=== PATIENT | male | born 1945 | race Caucasian/White ===

== ENCOUNTER 2020-02-26 10:11 | Inpatient (IN) ==
--- OUTSIDE RECORDS SUMMARY | 2020-02-26 10:13 | External Medical Summary | Continuity of Care Document ---
:1945 Author Name Jeff Morales Address Unavailable Unavailable , Care Team Providers Name Role Phone Lesly Mendieta M.D. Unavailable [email or web address] Unavailable Unavailable Unavailable Unavailable Unavailable Assessments Assessed Problems:Cholelithiasis with cholecystitisStatus post laparoscopic cholecystectomy Problems Status post laparoscopic cholecystectomy (V45.89) (Z90.49) Cholelithiasis with cholecystitis (574.10) (K80.10) Allergies and Adverse Reactions No Known Drug Allergies (Allergy) Mold (Allergy) Medications Aspirin 81 MG Oral Tablet Chewable; CHEW AND SWALLOW 1 TABLE T DAILY. Start: 29-Dec-2015 Refills: 0 Levothyroxine Sodium 100 MCG Oral Tablet; TAKE 1 TABLET MAICO Y. Start: 29-Dec-2015 Refills: 0 Procedures History of Cholecystectomy Laparoscopic Status: Completed 21-Dec-2015 0:00 History of Sinus Surgery Status: Complet ed Immunizations Immunizations not documented Family History Brother Family history of diabetes mellitus (V18.0) (Z83.3) Status: Active Family history of prostate cancer (V16.42) (Z80.42) Status: Active Family history of hypertension (V17.49) (Z82.49) Status: Act suman Mother Family history of hypertension (V17.49) (Z82.49) Status: Act suman Family history of cardiac disorder (V17.49) (Z82.49) Status: Active Father Family history of cardiac disorder (V17.49) (Z82.49) Status: Active Social History - Smoking Status Never smoked tobacco Plan of Treatment Planned Observations Planned Goals not documented Results No Known Results Results not documented Encounters Appointment; Carlos Mendieta M.D. 02-Jan-2016 9:40 Encounter Diagnosis: Problem not documented
[2020-02-26] MEDS ORDERED: ONDANSETRON INJ 2 MG/ML 2 ML VIAL IV STA (10:27)
[2020-02-26] MEDS ORDERED: SODIUM CHLORIDE 0.9% 1000ML 1,000 ML IV SCH (10:30)
[2020-02-26] MEDS: fentaNYL citrate 100 MCG/2 ML VIAL IV PRN ×2 (10:37→11:28)
[2020-02-26] MEDS ORDERED: IOVERSOL 100ml IV ONE (10:40)
[2020-02-26 10:44] LABS: Basophils # (auto) 0.01 K/uL (0-0.2); Basophils % (auto) 0.2 %; Eosinophils # (auto) 0.27 K/uL (0-0.5); Eosinophils % (auto) 4.1 %; Hematocrit (blood only) 50.3 % (42-52); Hemoglobin 17.4 g/dL (14.0-18.0); Immature Granulocytes # (auto) 0.02 K/uL (0.00-0.02); Immature Granulocytes % (auto) 0.3 %; Lymphocytes # (auto) 1.74 K/uL (1.2-3.4); Lymphocytes % (auto) 26.4 %; Mean Corpuscular Hemoglobin 29.5 pg (25-34); Mean Corpuscular Hgb Conc 34.6 g/dL (32-36); Mean Corpuscular Volume 85.3 fL (80-100); Monocytes # (auto) 0.58 K/uL (0.11-0.59); Monocytes % (auto) 8.8 %; Neutrophils # (auto) 3.97 K/uL (1.4-6.5); Neutrophils % (auto) 60.2 %; Platelet Count 175 K/uL (130-400); RDW Coefficient of Variation 13.6 % (11.5-14.5); RDW Standard Deviation 42.6 fL (36.4-46.3); White Blood Count 6.59 K/uL (4.8-10.8)
--- NOTE | 2020-02-26 10:47 | Emergency Department Note ---
Impression & Plan Left ureteral stone, Hydronephrosis, left, Nausea & vomiting ED Provider Note NAME: GOLDY MALONE AGE: 74 SEX: M : 1945 ARRIVES VIA: Walk-In INFORMANT: Patient, ED PROVIDER(S): Wes Sparks DO CHIEF COMPLAINT: Abdominal pain HPI: The patient is a 74-year-old male who presented to the emergency department for an evaluation of abdominal pain. The patient states he started having lower abdominal pain last evening. The pain was initially crampy but became constant. He notices it now in the left lower quadrant. He states he noticed significant nausea diaphoresis but no vomiting. He did notice a low-grade fever. He denies having any swelling in the groin but does have pain in the groin. He states he had a history of a kidney stone in the past but this does not feel exactly the same. He does complain of some left flank pain. He denies having any chest pain. He denies having any difficulty breathing or lower extremity swelling. He called his primary care physician and was instructed to come to the emergency department. ROS: See above HPI for pertinent positives & negatives. A total of 10 systems reviewed and were otherwise negative. PAST MEDICAL HISTORY: See Below PAST SURGICAL HISTORY: See Below FAMILY HISTORY: See Below SOCIAL HISTORY: See Below HOME MEDICATIONS: See Below ALLERGIES: See Below VITALS: See Below PHYSICAL EXAMINATION: GENERAL: The patient is awake and alert. He is very anxious appearing and appears to be uncomfortable. EYES: The conjunctivae are clear. The pupils are round and reactive. EARS, NOSE, MOUTH AND THROAT: The nose is without any evidence of any deformity. NECK: The neck is nontender and supple. RESPIRATORY: Normal respiratory effort is noted there is no evidence of wheezing rhonchi or rales CARDIOVASCULAR: Regular rate and rhythm noted there no murmurs rubs or gallops normal S1 normal S2. GASTROINTESTINAL: The abdomen is moderately distended and diffusely tender. There is guarding in the left lower quadrant. There were no inguinal masses appreciated to palpation. MUSCULOSKELETAL/EXTREMITIES: There is no evidence of gross deformity full range of motion is noted in the hips and shoulders. SKIN: There is no obvious evidence of any rash. There are no petechiae, pallor or cyanosis noted. NEUROLOGIC: Patient is awake alert and oriented x3. MEDICAL DECISION MAKING: Patient is a 74-year-old male who presented to the emergency department for an evaluation of left-sided abdominal pain. When I initially evaluated the patient I thought his condition was consistent with diverticulitis. He was treated with IV fluids and IV pain medication and IV antiemetics. He was reevaluated multiple times. I discussed the patient's laboratory and radiographic studies with him. His CT appeared to be consistent with a distal left ureteral calculus with significant hydronephrosis. He was still having significant nausea symptoms and pain. He had to be placed on oxygen because of hypoxia due to the fentanyl that he was given in the emergency department. He continued to have si gnificant pain. For this reason I [facility] have agreed to evaluate the patient in the emergency department for further management and disposition. On subsequent reevaluation he was feeling somewhat improved with his abdominal pain. Triage Nursing notes reviewed. Prior medical records reviewed Vital Signs: reviewed and remarkable for elevated blood pressure. Differential diagnosis: Etiologies such as appendicitis, diverticulitis, obstruction, inflammatory bowel disease, renal colic, PUD, biliary pathology, pancreatitis, mesenteric ischemia, aortic pathology, infections, genitourinary, UTI, perforated viscus, as well as others were entertained. ER treatment provided: See below Diagnostics interpreted by me: ECG: none Cardiac Monitoring: An order was placed for continuous cardiac monitoring. The monitor shows a rate of 85 bpm with sinus rhythm. Laboratory studies: As stated above and show below. Imaging studies: See below Consultation(s): 1145: I discussed this case with Giulia who [facility] They will evaluate the patient in the emergency department for further management and disposition. Past Med/Surg History Medical History History of kidney stones Hypothyroidism Surgical History S/P cholecystectomy Family History Other Diabetes Heart disease Social History Smoking Status: Never smoker Hx Alcohol Use: No Hx Substance Use: No Preferred Language: Upper Sorbian Communication Ability: Effective Licensed Psychiatric Technician Required: No Beliefs That Will Affect Care: None Current Living Situation: Spouse Other Information That Helps Us Care for You: No Feels Safe at Home: Yes Safety Concerns: Feels Safe At This Time Assistive Devices: Glasses Allergies Allergies Allergy/AdvReac Type Severity Reaction Status Date / Time mold Allergy Unknown UNKNOWN Verified 02/26/20 11:56 Home Meds Home Medications Medication Instructions Recorded Confirmed levothyroxine 112 mcg PO QAM 02/26/20 02/26/20 Results & Data (ED) Vital Signs Vital Signs - 24 hr 02/26/20 10:15 02/26/20 10:38 02/26/20 11:26 Temperature 36.4 C L Temperature Source Oral Pulse Rate 65 56 L Pulse Rate [Right Finger] 76 Pulse Rhythm Regular Respiratory Rate 20 22 20 Respiratory Effort / Characteristics Respiratory Depth Normal Respiratory Pattern Blood Pressure 159/97 H Blood Pressure [Right Arm] 180/99 H Blood Pressure Mean 117 Blood Pressure Mean [Right Arm] 126 Pulse Oximetry 96 97 97 Oxygen Delivery Method Room Air Room Air Room Air Oxygen Flow Rate Sepsis Recent Fever Within 48 Hours No Sepsis New/Unexplained Change in Mental Status N/A Sepsis Action Taken by Nursing No Action Required 02/26/20 11:31 02/26/20 11:43 02/26/20 12:09 Temperature Temperature Source Pulse Rate Pulse Rate [Right Finger] 72 67 66 Pulse Rhythm Respiratory Rate 16 16 24 Respiratory Effort / Characteristics Non-Labored Respiratory Depth Normal Respiratory Pattern Regular Blood Pressure Blood Pressure [Right Arm] 170/100 H 165/102 H 156/99 H Blood Pressure Mean Blood Pressure Mean [Right Arm] 123 123 118 Pulse Oximetry 97 95 91 Oxygen Delivery Method Room Air Nasal Cannula Nasal Cannula Oxygen Flow Rate 2 2 Sepsis Recent Fever Within 48 Hours Sepsis New/Unexplained Change in Mental Status Sepsis Action Taken by Nursing 02/26/20 12:40 02/26/20 12:46 Temperature 36.4 C L Temperature Source Oral Pulse Rate Pulse Rate [Right Finger] 63 68 Pulse Rhythm Respiratory Rate 22 24 Respiratory Effort / Characteristics Respiratory Depth Respiratory Pattern Blood Pressure Blood Pressure [Right Arm] 149/96 H 158/98 H Blood Pressure Mean Blood Pressure Mean [Right Arm] 113 118 Pulse Oximetry 93 95 Oxygen Delivery Method Nasal Cannula Nasal Cannula Oxygen Flow Rate 2 2 Sepsis Recent Fever Within 48 Hours Sepsis New/Unexplained Change in Mental Status Sepsis Action Taken by [facility] Medications Current Medication List: was personally reviewed by me Laboratory Data Attestation: I reviewed the patient's lab results. Result diagrams: 02/26/20 10:30 02/26/20 10:30 Lab Results 02/26/20 02/26/20 02/26/20 Range/Units 10:30 10:30 10:38 WBC 6.59 (4.8-10.8) K/uL RBC 5.90 (4.7-6.1) M/uL Hgb 17.4 (14.0-18.0) g/dL POC Hgb 17.7 (14.0-18.0) g/dl Hct 50.3 (42-52) % POC Hct 52 (42-52) % MCV 85.3 (80-100) fL MCH 29.5 (25-34) pg MCHC 34.6 (32-36) g/dL RDW Std Deviation 42.6 (36.4-46.3) fL RDW Coeff of [place] 13.6 (11.5-14.5) % Plt Count 175 (130-400) K/uL MPV 11.0 H (7.4-10.4) fL Immature Gran % (Auto) 0.3 % Neut % (Auto) 60.2 % Lymph % (Auto) 26.4 % White % (Auto) 8.8 % Eos % (Auto) 4.1 % Baso % (Auto) 0.2 % Neut # (Auto) 3.97 (1.4-6.5) K/uL Lymph # (Auto) 1.74 (1.2-3.4) K/uL White # (Auto) 0.58 (0.11-0.59) K/uL Eos # (Auto) 0.27 (0-0.5) K/uL Baso # (Auto) 0.01 (0-0.2) K/uL Immature Gran # (Auto) 0.02 (0.00-0.02) K/uL POC Sodium 140 (135-144) mmol/L Sodium 138 (136-145) mmol/L POC Potassium 4.2 (3.3-5.0) mmol/L Potassium 4.1 (3.5-5.1) mmol/L POC Chloride 105 (101-112) mmol/L Chloride 107 (98-107) mmol/L Carbon Dioxide 22 (21-32) mmol/L POC Total CO2 21 L (24-31) mmol/L Anion Gap 9.0 (3-11) POC Anion Gap 19.0 (16-25) mmol/L POC BUN 13 (7-18) mg/dl BUN 13 (7-18) mg/dl Creatinine 1.11 (0.6-1.4) mg/dl POC Creatinine 0.9 (0.6-1.3) mg/dl Est Cr Clr Drug Dosing Not Reportable Est GFR ( Amer) 75.9 Est GFR (Non-Af Amer) 65.5 BUN/Creatinine Ratio 11.8 (10-20) Glucose 147 H (70-99) mg/dl POC Glucose (other) 147 H (70-99) mg/dl Calcium 10.1 (8.5-10.1) mg/dl POC Ioniz Calcium [place] 1.17 (1.12-1.32) mmol/l Total Bilirubin 1.4 H (0.2-1) mg/dl AST 22 (15-37) U/L ALT 37 (12-78) U/L Alkaline Phosphatase 74 (45-117) U/L Total Protein 7.9 (6.4-8.2) gm/dl Albumin 4.1 (3.4-5.0) gm/dl Globulin 3.8 (2.5-4.0) gm/dl Albumin/Globulin Ratio 1.1 (0.9-2) Lipase 108 (73-393) U/L Urine Color Urine Appearance (Clear) Urine pH (4.5-7.5) Ur Specific [place] (1.000-1.030) Urine Protein (Negative) Urine Glucose (UA) (Negative) Urine Ketones (Negative) Urine Blood (Negative) Urine Nitrite (Negative) Urine Bilirubin (Negative) Urine Urobilinogen (Negative) Ur Leukocyte Esterase (Negative) Urine WBC (Auto) (0-5) /hpf Urine RBC (Auto) (0-4) /hpf U Hyaline Cast (Auto) (0-5) /lpf U Epithel Cells (Auto) (0-5) /lpf Urine Bacteria (Auto) (Negative) 02/26/20 Range/Units 11:50 WBC (4.8-10.8) K/uL RBC (4.7-6.1) M/uL Hgb (14.0-18.0) g/dL POC Hgb (14.0-18.0) g/dl Hct (42-52) % POC Hct (42-52) % MCV (80-100) fL MCH (25-34) pg MCHC (32-36) g/dL RDW Std Deviation (36.4-46.3) fL RDW Coeff of [place] (11.5-14.5) % Plt Count (130-400) K/uL MPV (7.4-10.4) fL Immature Gran % (Auto) % Neut % (Auto) % Lymph % (Auto) % White % (Auto) % Eos % (Auto) % Baso % (Auto) % Neut # (Auto) (1.4-6.5) K/uL Lymph # (Auto) (1.2-3.4) K/uL White # (Auto) (0.11-0.59) K/uL Eos # (Auto) (0-0.5) K/uL Baso # (Auto) (0-0.2) K/uL Immature Gran # (Auto) (0.00-0.02) K/uL POC Sodium (135-144) mmol/L Sodium (136-145) mmol/L POC Potassium (3.3-5.0) mmol/L Potassium (3.5-5.1) mmol/L POC Chloride (101-112) mmol/L Chloride (98-107) mmol/L Carbon Dioxide (21-32) mmol/L POC Total CO2 (24-31) mmol/L Anion Gap (3-11) POC Anion Gap (16-25) mmol/L POC BUN (7-18) mg/dl BUN (7-18) mg/dl Creatinine (0.6-1.4) mg/dl POC Creatinine (0.6-1.3) mg/dl Est Cr Clr Drug Dosing Est GFR ( Amer) Est GFR (Non-Af Amer) BUN/Creatinine Ratio (10-20) Glucose (70-99) mg/dl POC Glucose (other) (70-99) mg/dl Calcium (8.5-10.1) mg/dl POC Ioniz Calcium [place] (1.12-1.32) mmol/l Total Bilirubin (0.2-1) mg/dl AST (15-37) U/L ALT (12-78) U/L Alkaline Phosphatase (45-117) U/L Total Protein (6.4-8.2) gm/dl Albumin (3.4-5.0) gm/dl Globulin (2.5-4.0) gm/dl Albumin/Globulin Ratio (0.9-2) Lipase (73-393) U/L Urine Color [place] Urine Appearance Clear (Clear) Urine pH 6.5 (4.5-7.5) Ur Specific [place] 1.027 (1.000-1.030) Urine Protein Negative (Negative) Urine Glucose (UA) Negative (Negative) Urine Ketones 1+ H (Negative) Urine Blood 3+ H (Negative) Urine Nitrite Negative (Negative) Urine Bilirubin Negative (Negative) Urine Urobilinogen Negative (Negative) Ur Leukocyte Esterase Negative (Negative) Urine WBC (Auto) 1-5 (0-5) /hpf Urine RBC (Auto) >30 H (0-4) /hpf U Hyaline Cast (Auto) 1-5 (0-5) /lpf U Epithel Cells (Auto) 5-10 H (0-5) /lpf Urine Bacteria (Auto) Negative (Negative) Administered Medications Sodium Chloride (Nss 1000ml) 1,000 mls @ 125 mls/hr IV .Q8H FLORA Stop: 03/27/20 15:12 Last Admin: 02/26/20 15:16 Dose: 125 mls/hr Documented by: [id number] Discontinued Medications Fentanyl Citrate (Fentanyl Citrate 100 Mcg/2 Ml Vial) 50 mcg IV Q15M PRN PRN Reason: Pain Stop: 03/11/20 10:26 Last Admin: 02/26/20 11:28 Dose: 50 mcg Documented by: [id number] Admin: 02/26/20 10:37 Dose: 50 mcg Documented by: [id number] Sodium Chloride (Nss 1000ml) 1,000 mls @ 999 mls/hr IV .Q1H1M FLORA Stop: 02/26/20 11:30 Last Infusion: 02/26/20 11:45 Dose: 0 mls/hr Documented by: [id number] Admin: 02/26/20 10:36 Dose: 999 mls/hr Documented by: [id number] Promethazine HCl (Phenergan) 12.5 mg in 50.5 mls @ 202 mls/hr IV NOW STA Stop: 02/26/20 11:16 Last Infusion: 02/26/20 11:46 Dose: 0 mls/hr Documented by: [id number] Admin: 02/26/20 11:28 Dose: 202 mls/hr Documented by: [id number] Ioversol (Ioversol 100ml) 93 ml IV ONCE ONE Stop: 02/26/20 10:41 Last Admin: 02/26/20 10:40 Dose: 93 ml Documented by: [id number] Ondansetron HCl (Ondansetron Inj 2 Mg/Ml 2 Ml Vial) 4 mg IV NOW STA Stop: 02/26/20 10:28 Last Admin: 02/26/20 10:36 Dose: 4 mg Documented by: [id number] Tamsulosin HCl (Tamsulosin Hcl 0.4 Mg Cap) 0.4 mg PO NOW ONE Stop: 02/26/20 12:50 Last Admin: 02/26/20 14:36 Dose: 0.4 mg Documented by: [id number] Imaging Data Radiologist's Impression: CT abd pelvis IV con only CLINICAL HISTORY: Left lower quadrant abdominal pain COMPARISON STUDY: November 2015 TECHNIQUE: Patient was scanned in a dynamic helical fashion during intravenous administration of 93 cc of Optiray 320. A dose lowering technique was utilized adhering to the principles of ALARA. CT DOSE: 820.79 mGy.cm FINDINGS: Lower chest: The heart is normal in size and configuration, without pericardial effusion. The lung bases and pleural spaces are clear. Liver: The contrast-enhanced liver is normal in size, contour, and attenuation. There is no intrahepatic biliary ductal dilatation. The hepatic veins and portal veins are patent. Gallbladder: Surgically absent Spleen: Normal in size and attenuation. Pancreas: Unremarkable. Adrenal glands: Unremarkable. Kidneys: There is a 17 mm right renal cyst. There is diminished left-sided nephrogram. There is left-sided hydronephrosis and hydroureter. There is an obstructing 4 mm distal left ureteral calculus within 1 cm of the left ureterovesical junction. Bowel: There are no transition zones indicate bowel obstruction. The appendix appears normal. There is no evidence of acute diverticulitis. Peritoneum: There is no intraperitoneal free air or abdominal ascites. Vasculature: The abdominal aorta is normal in course and caliber. Adenopathy: None. Pelvic viscera: The prostate is enlarged. Skeletal structures: There is bilateral L5 spondylolysis. IMPRESSION: 1. 4 mm distal left ureteral calculus with secondary left-sided hydroureteronephrosis. ACT 112: Negative or not required by law. Electronically signed by: Kenny Chavez M.D. 02/26/2020 11:28 AM Dictated: 02/26/20 1116 Transcribed: 02/26/20 1118 Blood Pressure Blood Pressure Findings: Elevated blood pressure Blood Pressure Disposition: further management by hospitalist Discharge Plan Visit Data Chief Complaint: Abdominal Pain Stated Complaint: SEVERE LEFT SIDE ABDOMINAL PAIN ED Provider: Wes Sparks Discharge Problem: Left ureteral stone, Hydronephrosis, left, Nausea & vomiting Patient Disposition: Admitted As Inpatient Condition: Good Discharge Instructions Interventions: ED Discharge Assessment Last Done: 02/26/20 14:40 Discharge Problem: Nausea & vomiting Qualifiers: Vomiting type: unspecified Vomiting Intractability: non-intractable Qualified Code(s): R11.2 - Nausea with vomiting, unspecified
[2020-02-26 10:51] LABS: iSTAT Creatinine 0.9 mg/dl (0.6-1.3); iSTAT Hemoglobin 17.7 g/dl (14.0-18.0); iSTAT Ionized Calcium 1.17 mmol/l (1.12-1.32); iSTAT Potassium 4.2 mmol/L (3.3-5.0)
[2020-02-26] MEDS ORDERED: PROMETHAZINE 12.5 MG/50.5 ML BAG IV STA (11:02)
[2020-02-26 11:04] LABS: Alanine Aminotransferase 37 U/L (12-78); Albumin Level 4.1 gm/dl (3.4-5.0); Aspartate Aminotransferase 22 U/L (15-37); BUN Creatinine Ratio 11.8 (10-20); Blood Urea Nitrogen 13 mg/dl (7-18); Calcium 10.1 mg/dl (8.5-10.1); Carbon Dioxide 22 mmol/L (21-32); Chloride 107 mmol/L (98-107); Est GFR (African American) 75.9; Est GFR (Non-African American) 65.5; Glucose 147 mg/dl (70-99); Lipase 108 U/L (73-393); Potassium 4.1 mmol/L (3.5-5.1); Sodium 138 mmol/L (136-145)
[2020-02-26 11:07] LABS: Albumin Globulin Ratio 1.1 (0.9-2); Alkaline Phosphatase 74 U/L (45-117); Bilirubin,Total 1.4 mg/dl (0.2-1); Globulin 3.8 gm/dl (2.5-4.0); Total Protein 7.9 gm/dl (6.4-8.2)
--- NOTE | 2020-02-26 11:29 | CT Scan Report ---
CT abd pelvis IV con only CLINICAL HISTORY: Left lower quadrant abdominal pain COMPARISON STUDY: November 2015 TECHNIQUE: Patient was scanned in a dynamic helical fashion during intravenous administration of 93 c c of Optiray 320. A dose lowering technique was utilized adhering to the principles of ALARA. CT DOSE: 820.79 mGy.cm FINDINGS: Lower chest: The heart is normal in size and configuration, without pericardial effusion. The lung ba ses and pleural spaces are clear. Liver: The contrast-enhanced liver is normal in size, contour, and attenuation. There is no intrahepa tic biliary ductal dilatation. The hepatic veins and portal veins are patent. Gallbladder: Surgically absent Spleen: Normal in size and attenuation. Pancreas: Unremarkable. Adrenal glands: Unremarkable. Kidneys: There is a 17 mm right renal cyst. There is diminished left-sided nephrogram. There is left- sided hydronephrosis and hydroureter. There is an obstructing 4 mm distal left ureteral calculus with in 1 cm of the left ureterovesical junction. Bowel: There are no transition zones indicate bowel obstruction. The appendix appears normal. There i s no evidence of acute diverticulitis. Peritoneum: There is no intraperitoneal free air or abdominal ascites. Vasculature: The abdominal aorta is normal in course and caliber. Adenopathy: None. Pelvic viscera: The prostate is enlarged. Skeletal structures: There is bilateral L5 spondylolysis. IMPRESSION: 1. 4 mm distal left ureteral calculus with secondary left-sided hydroureteronephrosis. ACT 112: Negative or not required by law. Electronically signed by: Kenny Chavez M.D. 02/26/2020 11:28 AM
[2020-02-26 12:02] LABS: Appearance Urine Clear (Clear); Bacteria Urine Automated Negative (Negative); Bilirubin Urine Negative (Negative); Blood Urine 3+ (Negative); Color Urine Orange; Glucose Urine UA Negative (Negative); Ketones Urine 1+ (Negative); Leukocyte Esterase Urine Negative (Negative); Nitrite Urine Negative (Negative); Protein Urine Negative (Negative); RBC Urine Automated >30 /hpf (0-4); Specific Gravity Urine 1.027 (1.000-1.030); Urobilinogen Urine Negative (Negative); pH Urine 6.5 (4.5-7.5)
[2020-02-26] MEDS ORDERED: TAMSULOSIN HCL 0.4 MG CAP PO ONE (12:49)
[2020-02-26] MEDS ORDERED: ACETAMINOPHEN 500 MG TAB PO PRN (12:50)
--- NOTE | 2020-02-26 12:51 | History & Physical Report ---
Date of Service February 26, 2020 Assessment & Plan (1) Left ureteral stone: (2) Hydronephrosis, left: This is a 74-year-old male with PMH of hypothyroidism and history of kidney stones who presents with left lower quadrant abdominal pain starting last evening was found to have obstructing left ureteral stone with hydronephrosis. -CT abdomen pelvis with 4 mm distal left ureteral calculus with secondary left- sided hydroureteronephrosis -Afebrile, no leukocytosis. UA without evidence of infection. Kidney function at baseline -History of kidney stone passing on its own. Continue IV fluids, strain urine, flomax, antiemetics and pain control -N.p.o. after midnight with routine urology consult. Monitor CBC and BMP (3) Hypoxia: Transient hypoxia reported after being given fentanyl in ED. Now saturating at 95% on 2 L nasal cannula -Wean O2 as tolerated. Limit narcotics (4) Hypothyroidism: Continue levothyroxine DVT Ppx: SCDs Code status: FULL PCP: Yan[facility] Dispo: Admit to [facility]. Plan to return home once medically stable. Patient seen in collaboration with Dr. Benson. Please see addendum. History of Present Illness Chief Complaint: Left suprapubic pain Primary Care Provider: Brain Holt MD This is a 74-year-old male with PMH of hypothyroidism and history of kidney stones who presents with left lower quadrant abdominal pain starting last evening. Describes pain as waxing and waning in left lower abdominal area radiating into groin. Associated with nausea and 2 episodes of vomiting. Denies any hematuria or dysuria. No fever, chills or diarrhea. Has history of kidney stone a little bit over a year ago that passed without urological intervention. Movement exacerbates pain and fentanyl in ED relieved it. Pain n ow 3/10. Did develop transient hypoxia after fentanyl in ED but is now saturating at 95% on 2 L nasal cannula. PCP is Dr. Holt. Allergies Allergy/AdvReac Type Severity Reaction Status Date / Time mold Allergy Unknown UNKNOWN Verified 02/26/20 11:56 Home Medications Home Medications Medication Instructions Recorded Confirmed Type levothyroxine 112 mcg PO QAM 02/26/20 02/26/20 History Past Med/Surg History Medical History History of kidney stones Hypothyroidism Surgical History S/P cholecystectomy Family History Other Diabetes Heart disease Social History Smoking Status: Never smoker Hx Alcohol Use: No Hx Substance Use: No Preferred Language: Nauruan Communication Ability: Effective Director Of Convention Services Required: No Beliefs That Will Affect Care: None Current Living Situation: Spouse Other Information That Helps Us Care for You: No Feels Safe at Home: Yes Safety Concerns: Feels Safe At This Time Assistive Devices: Glasses Review of Systems Review of Systems: At least ten systems reviewed and negative except as noted in the HPI. Physical Exam Physical Exam: General Appearance: WD/WN, vitals as above, NAD, sitting up in bed, pleasant, conversing easily Head: normocephalic, atraumatic Eyes: normal inspection, PERRL, conjunctivae normal, anicteric sclerae ENT: external ear and nose normal, oropharynx normal Neck: normal visual inspection, trachea midline, no thyromegaly Respiratory: normal respiratory effort, lungs clear to auscultation, no wheeze, rales, rhonchi. No accessory muscle use Cardiovascular: regular rate, rhythm, no murmur, normal peripheral pulses, no BLE edema. Vessels: no JVD Chest: normal inspection of chest Abdomen/GI: normal bowel sounds, soft, nontender, no hepatosplenomegaly : +L suprapubic pain, no CVA tenderness Extremities/Musculoskeletal: no cyanosis or clubbing, extremities motor strength 5/5 Neurologic: PERRL, EOMI, accommodation nl, no face palsy, no dysarthria, CN's II-XI intact bilaterally and moves all extremities Psychiatric: A+Ox3, euthymic affect Skin: no rashes, normal color, warm/dry Results & Data Results & Data ([facility]) Vital Signs (Past 12 Hours) Vital Signs Temp Pulse Pulse Resp BP BP Pulse Ox 02/26/20 12:46 68 24 158/98 H 95 02/26/20 12:09 66 24 156/99 H 91 02/26/20 11:43 67 16 165/102 H 95 02/26/20 11:31 72 16 170/100 H 97 02/26/20 11:26 76 20 180/99 H 97 02/26/20 10:38 56 L 22 97 02/26/20 10:15 36.4 C L 65 20 159/97 H 96 Laboratory Results Short CBC 02/26/20 02/26/20 02/26/20 Range/Units 10:30 10:30 10:38 WBC 6.59 (4.8-10.8) K/uL RBC 5.90 (4.7-6.1) M/uL Hgb 17.4 (14.0-18.0) g/dL POC Hgb 17.7 (14.0-18.0) g/dl Hct 50.3 (42-52) % POC Hct 52 (42-52) % MCV 85.3 (80-100) fL MCH 29.5 (25-34) pg MCHC 34.6 (32-36) g/dL RDW Std Deviation 42.6 (36.4-46.3) fL RDW Coeff of Chen[place] 13.6 (11.5-14.5) % Plt Count 175 (130-400) K/uL MPV 11.0 H (7.4-10.4) fL Immature Gran % (Auto) 0.3 % Neut % (Auto) 60.2 % Lymph % (Auto) 26.4 % [place] % (Auto) 8.8 % Eos % (Auto) 4.1 % Baso % (Auto) 0.2 % Neut # (Auto) 3.97 (1.4-6.5) K/uL Lymph # (Auto) 1.74 (1.2-3.4) K/uL [place] # (Auto) 0.58 (0.11-0.59) K/uL Eos # (Auto) 0.27 (0-0.5) K/uL Baso # (Auto) 0.01 (0-0.2) K/uL Immature Gran # (Auto) 0.02 (0.00-0.02) K/uL POC Sodium 140 (135-144) mmol/L Sodium 138 (136-145) mmol/L POC Potassium 4.2 (3.3-5.0) mmol/L Potassium 4.1 (3.5-5.1) mmol/L POC Chloride 105 (101-112) mmol/L Chloride 107 (98-107) mmol/L Carbon Dioxide 22 (21-32) mmol/L POC Total CO2 21 L (24-31) mmol/L Anion Gap 9.0 (3-11) POC Anion Gap 19.0 (16-25) mmol/L POC BUN 13 (7-18) mg/dl BUN 13 (7-18) mg/dl Creatinine 1.11 (0.6-1.4) mg/dl POC Creatinine 0.9 (0.6-1.3) mg/dl Est Cr Clr Drug Dosing Not Reportable Est GFR ( Amer) 75.9 Est GFR (Non-Af Amer) 65.5 BUN/Creatinine Ratio 11.8 (10-20) Glucose 147 H (70-99) mg/dl POC Glucose (other) 147 H (70-99) mg/dl Calcium 10.1 (8.5-10.1) mg/dl POC Ioniz Calcium [place] 1.17 (1.12-1.32) mmol/l Total Bilirubin 1.4 H (0.2-1) mg/dl AST 22 (15-37) U/L ALT 37 (12-78) U/L Alkaline Phosphatase 74 (45-117) U/L Total Protein 7.9 (6.4-8.2) gm/dl Albumin 4.1 (3.4-5.0) gm/dl Globulin 3.8 (2.5-4.0) gm/dl Albumin/Globulin Ratio 1.1 (0.9-2) Lipase 108 (73-393) U/L Urine Color Urine Appearance (Clear) Urine pH (4.5-7.5) Ur Specific [place] (1.000-1.030) Urine Protein (Negative) Urine Glucose (UA) (Negative) Urine Ketones (Negative) Urine Blood (Negative) Urine Nitrite (Negative) Urine Bilirubin (Negative) Urine Urobilinogen (Negative) Ur Leukocyte Esterase (Negative) Urine WBC (Auto) (0-5) /hpf Urine RBC (Auto) (0-4) /hpf U Hyaline Cast (Auto) (0-5) /lpf U Epithel Cells (Auto) (0-5) /lpf Urine Bacteria (Auto) (Negative) 02/26/20 Range/Units 11:50 WBC (4.8-10.8) K/uL RBC (4.7-6.1) M/uL Hgb (14.0-18.0) g/dL POC Hgb (14.0-18.0) g/dl Hct (42-52) % POC Hct (42-52) % MCV (80-100) fL MCH (25-34) pg MCHC (32-36) g/dL RDW Std Deviation (36.4-46.3) fL RDW Coeff of Chencho (11.5-14.5) % Plt Count (130-400) K/uL MPV (7.4-10.4) fL Immature Gran % (Auto) % Neut % (Auto) % Lymph % (Auto) % [place] % (Auto) % Eos % (Auto) % Baso % (Auto) % Neut # (Auto) (1.4-6.5) K/uL Lymph # (Auto) (1.2-3.4) K/uL [place] # (Auto) (0.11-0.59) K/uL Eos # (Auto) (0-0.5) K/uL Baso # (Auto) (0-0.2) K/uL Immature Gran # (Auto) (0.00-0.02) K/uL POC Sodium (135-144) mmol/L Sodium (136-145) mmol/L POC Potassium (3.3-5.0) mmol/L Potassium (3.5-5.1) mmol/L POC Chloride (101-112) mmol/L Chloride (98-107) mmol/L Carbon Dioxide (21-32) mmol/L POC Total CO2 (24-31) mmol/L Anion Gap (3-11) POC Anion Gap (16-25) mmol/L POC BUN (7-18) mg/dl BUN (7-18) mg/dl Creatinine (0.6-1.4) mg/dl POC Creatinine (0.6-1.3) mg/dl Est Cr Clr Drug Dosing Est GFR ( Amer) Est GFR (Non-Af Amer) BUN/Creatinine Ratio (10-20) Glucose (70-99) mg/dl POC Glucose (other) (70-99) mg/dl Calcium (8.5-10.1) mg/dl POC Ioniz Calcium [place] (1.12-1.32) mmol/l Total Bilirubin (0.2-1) mg/dl AST (15-37) U/L ALT (12-78) U/L Alkaline Phosphatase (45-117) U/L Total Protein (6.4-8.2) gm/dl Albumin (3.4-5.0) gm/dl Globulin (2.5-4.0) gm/dl Albumin/Globulin Ratio (0.9-2) Lipase (73-393) U/L Urine Color [place] Urine Appearance Clear (Clear) Urine pH 6.5 (4.5-7.5) Ur Specific [place] 1.027 (1.000-1.030) Urine Protein Negative (Negative) Urine Glucose (UA) Negative (Negative) Urine Ketones 1+ H (Negative) Urine Blood 3+ H (Negative) Urine Nitrite Negative (Negative) Urine Bilirubin Negative (Negative) Urine Urobilinogen Negative (Negative) Ur Leukocyte Esterase Negative (Negative) Urine WBC (Auto) 1-5 (0-5) /hpf Urine RBC (Auto) >30 H (0-4) /hpf U Hyaline Cast (Auto) 1-5 (0-5) /lpf U Epithel Cells (Auto) 5-10 H (0-5) /lpf Urine Bacteria (Auto) Negative (Negative) BMP 02/26/20 10:30 Sodium 138 Potassium 4.1 Chloride 107 Carbon Dioxide 22 BUN 13 Creatinine 1.11 Glucose 147 H Calcium 10.1 Liver Function 02/26/20 Range/Units 10:30 Total Bilirubin 1.4 H (0.2-1) mg/dl AST 22 (15-37) U/L ALT 37 (12-78) U/L Alkaline Phosphatase 74 (45-117) U/L Albumin 4.1 (3.4-5.0) gm/dl Urine 02/26/20 Range/Units 11:50 Urine Color [place] Urine Appearance Clear (Clear) Urine pH 6.5 (4.5-7.5) Ur Specific [place] 1.027 (1.000-1.030) Urine Protein Negative (Negative) Urine Glucose (UA) Negative (Negative) Diagnostic Findings CT abd/pelvis: IMPRESSION: 1. 4 mm distal left ureteral calculus with secondary left-sided hydroureteronephrosis. Code Status & VTE Plan VTE Prophylaxis Plan VTE Prophylaxis will be ordered: Yes Supervising Physician Co-Signing Physician Notes Patient was seen and examined by me, care coordinated with Ginger Silva PA-C. Please see her note above for further details. Pt is a 74 y/o male with hypothyroidism and history of kidney stones who presents with left lower quadrant abdominal pain starting last evening. Describes pain as waxing and waning in left lower abdominal area radiating into groin. Associated with nausea and 2 episodes of vomiting. Denies any hematuria or dysuria. No fever, chills or diarrhea. Previously passed without urological intervention. Currently patient is lying in bed, resting comfortably. Says he does not feel nauseous anymore. Also mentions that he felt something was moving towards his left groin just before he was moved upstairs. He has been careful about straining urine and he let our nursing staff know. Abdomen is currently soft, mostly nontender to palpation, there is only some tenderness at left lower quadrant and left flank. Positive bowel sounds. Lung sounds are clear to auscultation bilaterally, without any wheezing rhonchi or crackles. Heart sounds regular. Patient is moving all 4 extremities spontaneously and w/o difficulty. Skin is warm, dry, well perfused. Continue IV fluids, Flomax, pain management and antiemetics, urology consulted. Meenakshi Benson MD
[2020-02-26] MEDS ORDERED: ACETAMINOPHEN 500 MG TAB PO SCH (13:00)
[2020-02-26] MEDS ORDERED: POLYETHYLENE (MIRALAX) 17 GM PACK PO PRN (15:13)
[2020-02-26] MEDS ORDERED: ONDANSETRON INJ 2 MG/ML 2 ML VIAL IV PRN (15:13)
[2020-02-26] MEDS ORDERED: KETOROLAC TROMETHAMINE 15 MG/ML VIAL IV PRN (15:13)
[2020-02-26] MEDS: SODIUM CHLORIDE 0.9% 1000ML 1,000 ML IV SCH ×2 (15:16→23:12)
[2020-02-27] MEDS: LEVOTHYROXINE SODIUM 112 MCG TABLET PO SCH (06:27)
[2020-02-27] MEDS: SODIUM CHLORIDE 0.9% 1000ML 1,000 ML IV SCH ×3 (06:27→22:23)
[2020-02-27 06:40] LABS: Hematocrit (blood only) 44.2 % (42-52); Hemoglobin 14.7 g/dL (14.0-18.0); Mean Corpuscular Hemoglobin 28.8 pg (25-34); Mean Corpuscular Hgb Conc 33.3 g/dL (32-36); Mean Corpuscular Volume 86.7 fL (80-100); Mean Platelet Volume 10.7 fL (7.4-10.4); Platelet Count 139 K/uL (130-400); RDW Coefficient of Variation 13.8 % (11.5-14.5); RDW Standard Deviation 43.9 fL (36.4-46.3); White Blood Count 7.02 K/uL (4.8-10.8)
[2020-02-27 07:15] LABS: BUN Creatinine Ratio 11.7 (10-20); Calcium 8.5 mg/dl (8.5-10.1); Est GFR (African American) 89.4; Est GFR (Non-African American) 77.1; Potassium 3.9 mmol/L (3.5-5.1)
[2020-02-27] MEDS: TAMSULOSIN HCL 0.4 MG CAP PO SCH (08:02)
[2020-02-27] MEDS ORDERED: HYDROmorphone INJ 0.5 MG/0.5 ML SYR IV STA (10:51)
--- NOTE | 2020-02-27 11:13 | Hospitalist Progress Note ---
Date of Service February 27, 2020 Assessment & Plan (1) Left ureteral stone: Presented with left flank / groin pain with nausea and vomiting. UA showed hematuria, no apparent infection. CT showed 4 mm calculus in left distal ureter with associated hydroureteronephrosis. Urology consulted. Continue IV fluids, tamsulosin, anti-emetics, analgesics. (2) Hydronephrosis, left: As noted above. (3) Hypothyroidism: Continue levothyroxine. (4) COVID-19 ruled out: COVID-19 screening required for anticipated surgery. SARS-CoV-2 PCR negative. (5) DVT prophylaxis: SCD's. (6) Discharge planning issues: Anticipated discharge to home. Family Medicine follow-up with Dr. Holt. Admission and Anticipated Discharge Date Admission Date: February 26, 2020 Subjective Recheck for ureteral calculus. Patient seen in their room around 1050. Has not yet passed stone. Intermittent severe left flank / groin pain. IV ketorolac not effective. No fever or chills. No gross hematuria. No dysuria. + nausea, no vomiting. Review of Systems: Constitutional- no fever. Cardiac- no chest pain. Pulmonary- no cough or SOB. GI- no diarrhea, melena, hematochezia. - as noted above. Otherwise, as noted above. Physical Exam Constitutional: no acute distress Respiratory: no respiratory distress Auscultation: lungs clear to auscultation bilaterally Cardiovascular: Rate/Rhythm: regular rate and regular rhythm Vessels: no JVD Extremities: no calf tenderness and no edema Gastrointestinal (Abdomen): Inspection/Auscultation: + abnormal bowel sounds (quiet) Percussion/Palpation: + abdomen tender (left-sided abdominal / flank tenderness) Musculoskeletal: Extremities: no cyanosis Skin: no rashes, warm and dry Psychiatric: Orientation: alert and oriented x 3 Results & Data Results & Data ([facility]) Vital Signs (Past 12 Hours) Vital Signs Temp Pulse Pulse Resp BP Pulse Ox 02/27/20 07:27 70 02/27/20 07:14 36.7 C 64 18 149/87 H 93 02/27/20 04:00 36.6 C 65 18 130/81 93 02/26/20 23:15 64 Laboratory Results Laboratory Results - last 24 hr 02/27/20 02/27/20 02/27/20 05:57 05:57 09:30 WBC 7.02 RBC 5.10 Hgb 14.7 Hct 44.2 MCV 86.7 MCH 28.8 MCHC 33.3 RDW Std Deviation 43.9 RDW Coeff of Chencho 13.8 Plt Count 139 MPV 10.7 H Sodium 141 Potassium 3.9 Chloride 110 H Carbon Dioxide 27 Anion Gap 4.0 BUN 11 Creatinine 0.97 Est Cr Clr Drug Dosing 81.0 Est GFR ( Amer) 89.4 Est GFR (Non-Af Amer) 77.1 BUN/Creatinine Ratio 11.7 Glucose 102 H Calcium 8.5 D COVID-19 Eval [facility] SARS-CoV-2, RNA, NAAT 02/27/20 09:30 WBC RBC Hgb Hct MCV MCH MCHC RDW Std Deviation RDW Coeff of Chencho Plt Count MPV Sodium Potassium Chloride Carbon Dioxide Anion Gap BUN Creatinine Est Cr Clr Drug Dosing Est GFR ( Amer) Est GFR (Non-Af Amer) BUN/Creatinine Ratio Glucose Calcium COVID-19 Eval Order SARS-CoV-2, RNA, NAAT NEGATIVE
--- NOTE | 2020-02-27 12:36 | Urology Consultation ---
Date of Consultation February 27, 2020 Assessment & Plan (1) Left ureteral stone: (2) Hydronephrosis, left: 74 year-old male patient, with history of hypothyroidism and renal stones, admitted to the hospital due to intractable left lower abdominal pain secondary to an obstructing 4 mm left distal ureteral stone. -Patient afebrile. -Labs reviewed - white count and creatinine normal. Urinalysis not indicative of infection. -Discussed stone treatment options with patient including trial of passage versus surgical intervention. -Patient prefers to continue trial of passage today. -Continue pain control, Flomax, and hydration. -Okay to order diet today, patient to be NPO after midnight. -If stone not passed and pain continues, will tentatively plan for cystoscopy, left retrograde pyelogram, and left stent placement tomorrow. -EKG and chest x-ray ordered. Ciprofloxacin ordered preoperatively. Risks/benefits of procedure discussed. -Will plan on reassessing patient in the morning. Please consult our service urgently if patient develops fever >101F, intractable pain or nausea, as this will necessitate urgent surgical intervention. Thank you for the consultation and we will continue to monitor closely with primary service. Supervising Physician Co-Signing Physician Notes I reviewed the patient's notes labs and imaging Patient said he would like to try to pass the stone on his own per our nurse practitioner Will observe overnight. He develops fever chills or any signs of sepsis will need emergent stenting History of Present Illness Reason for Consultation: Left ureteral stone Attending Physician: Tristen Ruiz MD History of Present Illness 74 year-old male patient with past medical history of kidney stones and hypothyroidism who presented to the hospital with intractable left lower quadrant abdominal pain. Patient reports his pain originally started this past Tuesday. He states he has a history of kidney stones roughly 10 years ago in which he passed spontaneously. Past stones were comprised of Calcium Oxalate. Urology was consulted for left-sided ureteral stone. Patient last followed with a urologist in 1989. Chart review: Afebrile with temperature of 36.5 Wbc 7.02 Hgb 14.7 Creatinine 0.97 Urinalysis 3+ blood, negative nitrates, >30 rbc, 1-5 wbc, negative bacteria. Imaging reviewed: CT abd/pelvis notable for obstructing 4 mm distal left ureteral calculus with secondary left-sided hydroureteronephrosis. Patient examined, laying in bed, comfortable and in no distress. He does continue to have left lower quadrant abdominal discomfort, tolerable with IV pain medication. He did experience some nausea before he was admitted to the hospital. Did have dry heaves in the ER but currently denies nausea or vomiting. Denies fevers. States this past Tuesday, he did have chills but has since reso lved. Pain mostly occurs after urination. Denies dysuria or hematuria. Denies significant urinary frequency/urgency. Feels like he empties his bladder for the most part. Does have family history of stones, brother. Has been straining his urine, no stone passage since hospital admission. He is currently NPO, receiving IV fluids. He is also on Flomax. Denies additional urologic concerns today. Allergies Allergy/AdvReac Type Severity Reaction Status Date / Time mold Allergy Unknown UNKNOWN Verified 02/26/20 11:56 Home Medications Home Medications Medication Instructions Recorded Confirmed Type levothyroxine 112 mcg PO QAM 02/26/20 02/26/20 History Patient History Medical History History of kidney stones Hypothyroidism Surgical History S/P cholecystectomy Family History Brother Kidney stones Other Diabetes Heart disease Social History Smoking Status: Never smoker Hx Alcohol Use: No Hx Substance Use: No Preferred Language: [place] Islander Communication Ability: Effective Risk Manager Required: No Beliefs That Will Affect Care: None Current Living Situation: Spouse Other Information That Helps Us Care for You: No Feels Safe at Home: Yes Safety Concerns: Feels Safe At This Time Assistive Devices: Glasses Review of Systems Constitutional: as per Subjective / HPI Ear, Nose, Mouth, Throat: no dizziness Respiratory: no cough and no dyspnea Cardiovascular: no chest pain and no edema Gastrointestinal: as per Subjective / HPI Genitourinary: + as per Subjective / HPI Musculoskeletal: no back pain Integumentary: no rash Neurologic: no dizziness and no syncope Physical Exam Constitutional: well developed and well nourished; no acute distress and not ill appearing Eyes: no eyelid abnormality ENMT: Ears: no external ear abnormality Neck: normal visual inspection and trachea midline Respiratory: normal respiratory effort and able to speak in complete sentences; no respiratory distress and no audible wheezes Cardiovascular: Extremities: no calf tenderness and no edema Gastrointestinal (Abdomen): Inspection/Auscultation: abdomen normal to inspection; abdomen not distended Percussion/Palpation: abdomen soft; abdomen nontender and no guarding Musculoskeletal: Moves all extremities without difficulty. Skin: No visible rashes, lesions, or wounds noted. Neurologic: moves all extremities and awake Psychiatric: Orientation: alert, oriented x 3 and cooperative Affect: euthymic affect Genitourinary: no CVA tenderness Results & Data ([facility]) Vital Signs (Past 12 Hours) Vital Signs Temp Pulse Pulse Resp BP BP Pulse Ox 02/27/20 12:07 36.5 C 59 L 20 146/85 H 93 02/27/20 07:27 70 02/27/20 07:14 36.7 C 64 18 149/87 H 93 02/27/20 04:00 36.6 C 65 18 130/81 93 PG Care Time/CCT Total # of Minutes Spent Total Time Spent with Patient: Total time spent is greater than 50% in coordination of care (as documented) at patient's floor/unit and/or counseling patient: Coding Level of Care Code 30827 Office/OBS Consult Lvl 4 Diagnoses Left ureteral stone N20.1 Hydronephrosis, left N13.30
--- NOTE | 2020-02-27 15:26 | XRay Report ---
TWO VIEW CHEST CLINICAL HISTORY: Preoperative examination. FINDINGS: PA and lateral chest radiographs are compared to study dated 12/20/2015. The cardiomediastin al silhouette is unremarkable noting atherosclerotic calcification of the thoracic aorta. The lungs and pleural spaces are clear. There is no pneumothorax. The skeletal structures are osteopenic. The b kali thorax appears intact. IMPRESSION: No active disease in the chest. ACT 112: Negative or not required by law. Electronically signed by: German Snyder M.D. 02/27/2020 3:25 PM
[2020-02-27] MEDS: HYDROmorphone INJ 0.5 MG/0.5 ML SYR IV PRN ×2 (19:02→23:43)
[2020-02-28] MEDS: HYDROmorphone INJ 0.5 MG/0.5 ML SYR IV PRN (05:00)
[2020-02-28] MEDS ORDERED: HYDROmorphone INJ 0.5 MG/0.5 ML SYR IV STA (05:34)
[2020-02-28] MEDS: LEVOTHYROXINE SODIUM 112 MCG TABLET PO SCH (06:16)
[2020-02-28] MEDS ORDERED: CIPROFLOXACIN / D5W 400 MG/200 ML BAG IV ONE (07:00)
[2020-02-28] MEDS: SODIUM CHLORIDE 0.9% 1000ML 1,000 ML IV SCH (07:03)
[2020-02-28 08:13] LABS: Hematocrit (blood only) 42.9 % (42-52); Hemoglobin 14.6 g/dL (14.0-18.0); Mean Corpuscular Volume 85.3 fL (80-100); Mean Platelet Volume 10.5 fL (7.4-10.4); Platelet Count 117 K/uL (130-400); RDW Coefficient of Variation 13.3 % (11.5-14.5); RDW Standard Deviation 41.2 fL (36.4-46.3); Red Blood Count 5.03 M/uL (4.7-6.1)
[2020-02-28] MEDS: TAMSULOSIN HCL 0.4 MG CAP PO SCH (08:31)
[2020-02-28 08:42] LABS: BUN Creatinine Ratio 10.3 (10-20); Creatinine Clr Calc Pharmacy 75.5 ml/min; Est GFR (African American) 82.2; Est GFR (Non-African American) 70.9; Potassium 3.6 mmol/L (3.5-5.1)
--- NOTE | 2020-02-28 09:52 | Anesthesiology Consultation ---
Date of Service February 28, 2020 Assessment & Plan (1) Encounter for pre-operative examination: Chart Review Chart Review: Acceptable Risk for Surgery Consults Requested none ASA ASA2 Proposed Anesthesia Anesthesia Type: General Risk / Benefits Reviewed With: PT / POA / Parent / Guardian, Accepts Plan and Informed Consent Obtained History Surgery Operation Date: 02/28/20 13:25 Proposed Procedures p Cystoscopy, Left Retrograde Pyelogram, Left Stent Placement, Possible Ureteroscopy, Laser Lithotripsy - Earl Burt MD Height/Weight Height: 6 ft Weight: 94.5 kg Allergies Allergy/AdvReac Type Severity Reaction Status Date / Time mold Allergy Unknown UNKNOWN Verified 02/26/20 11:56 Medications Home Medications Medication Instructions Recorded Confirmed Last Taken levothyroxine 112 mcg PO QAM 02/26/20 02/26/20 02/26/20 Active Medications Generic Name Dose Route Start Last Admin Trade Name Freq PRN Reason Stop Dose Admin Acetaminophen 1,000 mg 02/26/20 12:50 02/27/20 10:42 Acetaminophen 500 Mg Tab PO 03/27/20 12:59 1,000 mg Q8H PRN Administration Pain or Fever Hydromorphone HCl 0.5 mg 02/27/20 10:51 02/28/20 05:00 Hydromorphone Inj 0.5 Mg/0.5 Ml Syr IV 03/12/20 10:50 0.5 mg Q2H PRN Administration Severe Pain Sodium Chloride 1,000 mls @ 125 mls/hr 02/26/20 15:13 02/28/20 07:03 Nss 1000ml IV 03/27/20 15:12 125 mls/hr .Q8H FLORA Administration Levothyroxine Sodium 112 mcg 02/27/20 06:30 02/28/20 06:16 Levothyroxine Sodium 112 Mcg Tablet PO 03/28/20 06:29 112 mcg DAILYBB FLORA Administration Ondansetron HCl 4 mg 02/26/20 15:13 02/27/20 19:06 Ondansetron Inj 2 Mg/Ml 2 Ml Vial IV 03/27/20 15:12 4 mg Q6H PRN Administration Nausea Tamsulosin HCl 0.4 mg 02/27/20 09:00 02/28/20 08:31 Tamsulosin Hcl 0.4 Mg Cap PO 03/28/20 08:59 0.4 mg QAM FLORA Administration Past Medical History Medical History History of kidney stones Hypothyroidism Exercise / Class Metabolic Activity III < 4 Walking/Shop/Light housework Past Family History Family History Brother Kidney stones Other Diabetes Heart disease Past Surgical History Surgical History S/P cholecystectomy Past Anesthesia History No Hx of Anesthesia Complications and No Family Hx of Anesthesia Complications History of PONV No Hx of PONV and No Hx of Motion Sickness Social History Smoking Status: Never smoker Hx Alcohol Use: No Alcohol type: wine alcohol intake frequency: holidays/special occasions only Hx Substance Use: No Physical Exam Vital Signs Last Vital Signs Temp 98.4 F 02/28/20 09:53 Pulse 75 02/28/20 09:53 Resp 18 02/28/20 09:53 BP 162/99 H 02/28/20 09:53 Pulse Ox 93 02/28/20 09:53 ENMT Mouth: no dentition abnormality Thyromental Distance: > or= 3.5 Finger Breadths Mallampati Class: III Neck normal visual inspection Respiratory normal respiratory effort Auscultation: lungs clear to auscultation bilaterally Cardiovascular Rate/Rhythm: regular rate and regular rhythm Testing Laboratory Results 02/28/20 07:49 02/28/20 07:49 Urine Color [place] 02/26/20 11:50 Urine Appearance Clear (Clear) 02/26/20 11:50 Urine pH 6.5 (4.5-7.5) 02/26/20 11:50 Ur Specific [place] 1.027 (1.000-1.030) 02/26/20 11:50 Urine Protein Negative (Negative) 02/26/20 11:50 Urine Glucose (UA) Negative (Negative) 02/26/20 11:50 Urine Ketones 1+ (Negative) H 02/26/20 11:50 Urine Nitrite Negative (Negative) 02/26/20 11:50 Ur Leukocyte Esterase Negative (Negative) 02/26/20 11:50 Urine WBC (Auto) 1-5 /hpf (0-5) 02/26/20 11:50 Urine RBC (Auto) >30 /hpf (0-4) H 02/26/20 11:50 U Hyaline Cast (Auto) 1-5 /lpf (0-5) 02/26/20 11:50 U Epithel Cells (Auto) 5-10 /lpf (0-5) H 02/26/20 11:50 Urine Bacteria (Auto) Negative (Negative) 02/26/20 11:50 Electrocardiogram Date: 02/28/20 Findings: + NSR @ (75 bpm) Chest X-Ray Date: 02/27/20 Findings: + NAD
[2020-02-28] MEDS ORDERED: fentaNYL citrate 100 MCG/2 ML VIAL IV PRN (09:53)
[2020-02-28] MEDS ORDERED: ePHEDrine sulfate 50 MG/ML AMP IV PRN (09:53)
[2020-02-28] MEDS ORDERED: ONDANSETRON INJ 2 MG/ML 2 ML VIAL IV PRN (09:53)
[2020-02-28] MEDS ORDERED: ATROPINE SULFATE 0.1 MG/ML 10ML SYR IV PRN (09:53)
[2020-02-28] MEDS ORDERED: LIDOCAINE HCL 2% 2 ML VIAL/AMP(20MG/ML) INFIL ONE (10:12)
[2020-02-28] MEDS ORDERED: ONDANSETRON INJ 2 MG/ML 2 ML VIAL ONE (10:12)
[2020-02-28] MEDS ORDERED: MIDAZOLAM HCL 1 MG/ML 2ML VIAL ONE (10:12)
[2020-02-28] MEDS ORDERED: DEXAMETHASONE SOD INJ 4 MG/ML VIAL ONE (10:12)
[2020-02-28] MEDS ORDERED: PROPOFOL IV EMULSION 10 MG/ML 20 ML VIAL IV ONE (10:12)
[2020-02-28] MEDS ORDERED: fentaNYL citrate 100 MCG/2 ML VIAL ONE (10:12)
--- NOTE | 2020-02-28 10:53 | Urology Progress Note ---
Date of Service February 28, 2020 Assessment & Plan (1) Hydronephrosis, left: (2) Left ureteral stone: Plan for cysto, L Ureteroscopy, Laser litho, stent placement - risks, benefits, expectations reviewed consent on the chart Admission and Anticipated Discharge Date Admission Date: February 26, 2020 Subjective Remains very symptomatic no stone passage overnight anxious for relief Physical Exam Constitutional: well developed and well nourished Neck: neck nontender Respiratory: normal respiratory effort; no respiratory distress and does not use accessory muscles Cardiovascular: Rate/Rhythm: regular rate Vessels: radial pulses present Extremities: no edema Gastrointestinal (Abdomen): Inspection/Auscultation: abdomen normal to inspection Percussion/Palpation: abdomen soft; abdomen nontender and no guarding Musculoskeletal: Head/Neck/Chest: normocephalic and head atraumatic Extremities: extremities normal to inspection Skin: no rashes and no lesions Trauma: no evidence of skin trauma Neurologic: awake; not obtunded Speech / Cognition: normal speech Motor/Sensory: no tremor Psychiatric: Orientation: alert and oriented x 3 Genitourinary: no CVA tenderness Lymphatic: no lymphadenopathy Results & Data ([facility]) Vital Signs (Past 12 Hours) Vital Signs Temp Pulse Pulse Resp BP BP Pulse Ox 02/28/20 09:53 36.9 C 75 18 162/99 H 93 02/28/20 07:07 71 02/28/20 03:40 36.8 C 70 16 151/85 H 91 02/28/20 00:24 71 02/27/20 23:36 36.7 C 65 20 138/79 92 PG Care Time/CCT Total # of Minutes Spent Total Time Spent with Patient: Total time spent is greater than 50% in coordi nation of care (as documented) at patient's floor/unit and/or counseling patient: Coding Level of Care Code 09430 Subseq Hosp Care Lvl 2 Diagnoses Hydronephrosis, left N13.30 Left ureteral stone N20.1
[2020-02-28] MEDS ORDERED: KETOROLAC 30 MG/ML VIAL ONE (11:36)
--- NOTE | 2020-02-28 12:15 | Operative Report ---
PG Post Operative Report Pre & Post Diagnosis Operation Date: 02/28/20 13:25 Pre-Op Diagnosis: Hydronephrosis, Left ureteral stone Post-Op Diagnosis: Hydronephrosis, Left ureteral stone I identified the patient and participated in the time-out.: Yes Procedure Operation Date: 02/28/20 13:25 Actual Procedures p Cystoscopy, Left Ureteral Stent Placement, Ureteroscopy, Laser Lithotripsy(Left) - Earl Burt MD Surgeon Lonnie Burt MD Ceramic Coater Machine none Estimated Blood Loss 0 Findings Consistent with Post-Op Diagnosis Specimens Stones for chemical analysis Description of Procedure The patient was identified in the preoperative holding area, appropriate informed consents were reviewed and completed and the patient was transferred to the operative suite. Upon arrival, appropriate antibiotics and anesthesia were administered and the patient was placed in dorsal lithotomy position and prepped and draped in sterile fashion. To begin the case I passed a 22 Spanish cystoscope with 30 degree lens. Inspection revealed a healthy-appearing urethra and a small prostate. Inspection of the bladder revealed healthy-appearing mucosa. I cannulated the left UO with a sensor wire. I then passed a semirigid ureteroscope alongside the wire. He had an impacted stone in the extreme distal ureter. I was able to push this from inside of impaction into a more dilated segment of the ureter just proximal to its site of impaction. I fragmented the stone with a 365 m laser fiber. These fragments were then irrigated out of the ureter. The site of impaction was inspected and found to be healthy although mildly inflamed. A stent was placed6 Spanish by 26 cm. There was a good curl in the kidney as well as the bladder. The case was concluded. Stone fragments were passed off the table for chemical analysis. He was extubated and taken to the PACU in stable condition. I attest to the content of the Intraoperative Record and any orders documented therein. Any exceptions are noted below.
--- NOTE | 2020-02-28 12:18 | Fluoroscopy Report ---
FL KUB (2 views) CLINICAL HISTORY: LT CYSTO/RETROGRADE/LITHO COMPARISON STUDY: CT scan dated 02/26/2020 FLUOROSCOPY TIME: 5 seconds. NUMBER OF FLUOROSCOPIC IMAGES: 2 FINDINGS: 2 fluoroscopic spot images were obtained during a reported laser lithotripsy and stent plac ement. The final image demonstrates a left-sided nephroureteral stent with visualization of the proxi mal pigtail. IMPRESSION: Fluoroscopic spot images obtained during the performance of a left-sided retrograde stud y with stent placement. ACT 112: Negative or not required by law. Electronically signed by: Kenny Chavez M.D. 02/28/2020 12:16 PM
--- NOTE | 2020-02-28 12:23 | Anesthesiology Progress Note ---
Date of Service February 28, 2020 Anesthesia Post Procedure Vital Signs Vital Signs: Temp Pulse Pulse Pulse Resp BP BP 02/28/20 12:20 79 17 137/90 02/28/20 12:10 85 17 130/88 02/28/20 12:00 92 H 16 136/77 02/28/20 11:51 98.2 F 104 H 18 108/62 02/28/20 09:53 98.4 F 75 18 162/99 H 02/28/20 07:07 71 02/28/20 03:40 98.2 F 70 16 151/85 H 02/28/20 00:24 71 02/27/20 23:36 98.1 F 65 20 138/79 02/27/20 18:58 98.1 F 81 20 149/78 H 02/27/20 16:36 97.7 F 64 22 144/84 H Pulse Ox 02/28/20 12:20 92 02/28/20 12:10 93 02/28/20 12:00 92 02/28/20 11:51 94 02/28/20 09:53 93 02/28/20 07:07 02/28/20 03:40 91 02/28/20 00:24 02/27/20 23:36 92 02/27/20 18:58 93 02/27/20 16:36 92 Pain Intensity Left Lower Abdomen: Pain Intensity: 7 Transfer of Care Handoff Completed per policy Notes Mental Status: alert / awake / arousable and participated in evaluation Patient Amnestic to Procedure: Yes Nausea / Vomiting: adequately controlled Pain: adequately controlled Airway Patency, RR, SpO2: stable & adequate BP & HR: stable & adequate Hydration State: stable & adequate Anesthetic Complications: no major complications apparent and Pt Satisfied with anesthetic care
--- NOTE | 2020-02-28 15:28 | Hospitalist Progress Note ---
Date of Service February 28, 2020 Assessment & Plan (1) Left ureteral stone: Presented with left flank / groin pain with nausea and vomiting. UA showed hematuria, no apparent infection. CT showed 4 mm calculus in left distal ureter with associated hydroureteronephrosis. Urology consulted. Received IV fluids, tamsulosin, anti-emetics, analgesics, but did not pass stone. Cysto with left ureteral stent placement and laser lithotripsy performed by Dr. Burt. Stone analysis pending. (2) Hydronephrosis, left: As noted above. (3) Hypothyroidism: Continue levothyroxine. (4) COVID-19 ruled out: COVID-19 screening required for anticipated surgery. SARS-CoV-2 PCR negative on 02/26. (5) DVT prophylaxis: SCD's. Ambulating. (6) Discharge planning issues: Discharge to home. Family Medicine follow-up with Dr. Holt. Urology follow-up with [facility]. Admission and Anticipated Discharge Date Admission Date: February 26, 2020 Subjective Recheck for ureteral calculus. Patient seen in their room around 1350. Cysto with left ureteral stent placement and laser lithotripsy performed this morning by Dr. Burt. Patient doing well after procedure. Flank / groin pain resolved. Having some gross hematuria without dysuria. No fever. No further nausea or vomiting. Would like to go home. Review of Systems: Constitutional- no fever. Cardiac- no chest pain. Pulmonary- no cough or SOB. GI- no further N&V; no diarrhea, melena, hematochezia. - as noted above. Otherwise, as noted above. Physical Exam Constitutional: no acute distress Respiratory: no respiratory distress Auscultation: lungs clear to auscultation bilaterally Cardiovascular: Rate/Rhythm: regular rate and regular rhythm Vessels: no JVD Extremities: no calf tenderness and no edema Gastrointestinal (Abdomen): normal bowel sounds, soft, nontender, no hepatosplenomegaly Musculoskeletal: Extremities: no cyanosis Skin: no rashes, warm and dry Psychiatric: Orientation: alert and oriented x 3 Results & Data Results & Data ([facility]) Vital Signs (Past 12 Hours) Vital Signs Temp Pulse Pulse Pulse Resp BP BP 02/28/20 13:16 36.8 C 70 18 131/83 02/28/20 12:55 36.6 C 73 16 131/83 02/28/20 12:30 78 14 128/85 02/28/20 12:20 79 17 137/90 02/28/20 12:10 85 17 130/88 02/28/20 12:00 92 H 16 136/77 02/28/20 11:51 36.8 C 104 H 18 108/62 02/28/20 09:53 36.9 C 75 18 162/99 H 02/28/20 07:07 71 02/28/20 03:40 36.8 C 70 16 151/85 H Laboratory Results 02/28/20 07:49 02/28/20 07:49
--- NOTE | 2020-02-28 16:08 | Discharge Summary ---
Date of Service Date of Admission: 02/26/20 Date of Discharge: 02/28/20 Admission HPI Per Admitting Provider This is a 74-year-old male with PMH of hypothyroidism and history of kidney stones who presents with left lower quadrant abdominal pain starting last evening. Describes pain as waxing and waning in left lower abdominal area radiating into groin. Associated with nausea and 2 episodes of vomiting. Denies any hematuria or dysuria. No fever, chills or diarrhea. Has history of kidney stone a little bit over a year ago that passed without urological intervention. Movement exacerbates pain and fentanyl in ED relieved it. Pain now 3/10. Did develop transient hypoxia after fentanyl in ED but is now saturating at 95% on 2 L nasal cannula. PCP is Dr. Holt. Principal Diagnosis left ureteral calculus with hydronephrosis Discharge Data Allergies Allergy/AdvReac Type Severity Reaction Status Date / Time mold Allergy Unknown UNKNOWN Verified 02/26/20 11:56 Consultations 02/26/20 11:46 ED Decision to Admit Stat 02/27/20 09:15 Consult Urology Routine Procedures Performed Operation Date: 02/28/20 13:25 Actual Procedures p Cystoscopy, Ureteroscopy, Laser Lithotripsy(Left) - Earl Burt MD s Left Ureteral Stent Placement,(Left) - Earl Burt MD Ordered Studies 02/26/20 10:27 CT abd pelvis IV con only Stat 02/28/20 11:00 FL fluoroscopy <1hr Routine 02/28/20 13:25 FL KUB Routine Hospital Course (1) Left ureteral stone: Presented with left flank / groin pain with nausea and vomiting. UA showed hematuria, no apparent infection. CT showed 4 mm calculus in left distal ureter with associated hydrourete ronephrosis. Urology consulted. Received IV fluids, tamsulosin, anti-emetics, analgesics, but did not pass stone. Cysto with left ureteral stent placement and laser lithotripsy performed by Dr. Burt 02/28/20. Stone analysis pending at time of discharge. (2) Hydronephrosis, left: As noted above. (3) Hypothyroidism: Continue levothyroxine. (4) COVID-19 ruled out: COVID-19 screening required for anticipated surgery. SARS-CoV-2 PCR negative on 02/26. (5) DVT prophylaxis: SCD's. Ambulating. (6) Discharge planning issues: Discharged to home. Family Medicine follow-up with Dr. Holt. Urology follow-up with [facility]. Total Time Total Time Spent Total Time Spent (In Minutes): 35 Discharge Plan Discharge Items Patient Disposition: Home - Self-Care Reason For Visit: SEVERE LEFT SIDE ABDOMINAL PAIN Discharge Diagnosis: kidney stone Condition on Discharge: Good Activity: Resume your previous activity Non-emergency contact: Primary Care Provider, Hospitalist and Urologist Call non-emergency contact if: you have any medication questions and your temperature is above 101 Follow-up/Referrals: Earl Burt MD [Physician] - (Office will contact you with appointment. Please call them if you do not receive a phone call by early next week.) Brain Holt MD [Primary Care Provider] - 03/06/20 2:20 pm (Date & Time Provider Brain Holt MD [facility] ) Diet: Heart Healthy Addtl Attending Provider Instructions: MEDICATION CHANGES: ciprofloxacin (Cipro) 500 mg twice a day for 3 days tamsulosin (Flomax) 0.4 mg at bedtime for 7 days phenazopyridine (Pyridium) 100 mg every 8 hours as needed for bladder pain (may make urine turn orange- don't be alarmed) oxybutynin (Ditropan) 5 mg every 8 hrs as needed for bladder spasm SUMMARY OF TEST RESULTS: CT scan showed kidney stone in left ureter that measured 4 mm. COVID-19 screening test done for surgery. It was negative on 02/27/20. RECOMMENDATIONS FOR FOLLOW-UP: Urology follow-up with [facility] Urology for removal of stent. OTHER INSTRUCTIONS: Drink plenty of fluids to help prevent recurrence of kidney stones. Seek medical attention if you have: * temperature above 101 * chest pain or trouble breathing * abdominal pain, nausea, vomiting * diarrhea, dark stools or bloody stools * severe pain in back, abdomen, or groin * burning with urination of persistent blood in urine * any unanswered questions or concerns Call 911 if symptoms are severe. Please take good care of yourself. Call if you have any questions or problems. You can reach a [facility] hospitalist on duty at [facility] 24 hours a day by calling [phone]. My cell # is [phone]. Pending Studies at Discharge: Yes Studies:: kidney stone analysis Stand-Alone Forms: My [facility], Smoking Cessation Medications and DC Order Prescriptions: New tamsulosin 0.4 mg capsule 0.4 mg PO HS Qty: 7 RF: 0 ciprofloxacin HCl 500 mg tablet 500 mg PO BID Qty: 6 RF: 0 phenazopyridine [Pyridium] 100 mg tablet 100 mg PO Q8H PRN (Reason: bladder pain) Qty: 10 RF: 1 oxybutynin chloride 5 mg tablet 5 mg PO Q8H PRN (Reason: bladder spasms) Qty: 10 RF: 1 Continued levothyroxine 112 mcg tablet 112 mcg PO QAM RF: 0 Discharge Orders: Discharge Order (Routine); Ordered 02/28/20 Ordered By: Tristen Ruiz Admission Data Admit Date/Time: 02/26/20 12:50 Attending Provider: Tristen Ruiz Admit Provider: Woody Benson Primary Care Provider: Brain Holt Other Providers: Tracie Saleem I. ; Woody Benson ; Beka Horn
--- NOTE | 2020-02-29 05:43 | Electrocardiogram Report ---
Test Reason : Blood Pressure : / mmHG Vent. Rate : 075 BPM Atrial Rate : 075 BPM P-R Int : 188 ms QRS Dur : 078 ms QT Int : 386 ms P-R-T Axes : 053 014 072 degrees QTc Int : 431 ms Normal sinus rhythm Normal ECG When compared with ECG of 20-DEC-2015 06:44, No significant change was found Confirmed by Alvaro Doshi ([id number]) on 02/29/2020 5:42:58 AM Referred By: REFERRED SELF Confirmed By:Alvaro Doshi
[2020-03-04 23:00] LABS: Component 2 DNR; Source LEFT URETERAL STONE
== END 2020-02-28 17:58 | disposition home or self-care (01) | DRG 661 ==
LOC: ED 10:11 → SUATTDRO 12:50 → 2N 12:50

== ENCOUNTER 2022-04-14 12:02 | Inpatient (IN) ==
[2022-04-14 12:58] LABS: Hematocrit (blood only) 47.7 % (40.1-51.0); Hemoglobin 16.8 g/dl (14.0-18.0); Mean Corpuscular Hemoglobin 29.8 pg (25.0-34.0); Mean Corpuscular Hgb Conc 35.2 g/dL (32.0-36.0); Mean Corpuscular Volume 84.7 fL (80.0-100.0); Mean Platelet Volume 10.9 fL (9.4-12.4); Platelet Count 167 K/uL (130-400); RDW Coefficient of Variation 13.2 % (11.5-14.5); RDW Standard Deviation 41.1 fL (36.4-46.3); Red Blood Count 5.63 M/uL (4.63-6.08); White Blood Count 6.93 K/ul (4.8-10.8)
--- NOTE | 2022-04-14 13:04 | CT Scan Report ---
HEAD CT NONCONTRAST CT DOSE: 614.27 mGy.cm HISTORY: Stroke Alert TECHNIQUE: Multiaxial CT images of the head were performed without the use of intravenous contrast. A utomated exposure control was utilized for this study. A dose lowering technique was utilized adheri ng to the principles of ALARA. Comparison: None. Findings: The paranasal sinuses and mastoid air cells are clear. There is a new small focal hypodensi ty within the left temporal/occipital lobe junction which measures 3.0 x 2.2 cm. This is best seen on image 13. This is consistent with a small acute to subacute infarct. No mass, hematoma or midline sh ift identified. Impression: A new small focal hypodensity within the left temporal/occipital lobe junction consistent with an acu te to subacute infarct. ACT 112: Negative or not required by law. Electronically signed by: Jared Olsen M.D. 04/14/2022 1:03 PM
[2022-04-14 13:10] LABS: Partial Thromboplastin Ratio 0.9; Partial Thromboplastin Time 24.6 Seconds (21.0-31.0)
[2022-04-14 13:25] LABS: Albumin Globulin Ratio 1.5 (0.9-2); Albumin Level 4.5 gm/dl (3.4-5.0); Bilirubin,Total 1.4 mg/dl (0.2-1.0); Calcium 9.9 mg/dl (8.5-10.1); Creatinine Clr Calc Pharmacy 87.6 ml/min; Est GFR (African American) 101.3 ml/min; Est GFR (Non-African American) 87.4 ml/min; Magnesium 2.1 mg/dl (1.7-2.4); Total Protein 7.5 gm/dl (6.0-8.3)
[2022-04-14] MEDS ORDERED: SODIUM CHLORIDE 0.9% 500 ML IV ONE (15:05)
[2022-04-14] MEDS ORDERED: ASPIRIN CHEW 324 MG PO STA (15:06)
--- NOTE | 2022-04-14 15:09 | Emergency Department Note ---
Impression & Plan CVA (cerebral vascular accident), Elevated bilirubin ED Provider Note NAME: GOLDY MALONE AGE: 76 SEX: M : 1945 ARRIVES VIA: Walk-In INFORMANT: Patient ED PROVIDER(S): Ja Mora DO CHIEF COMPLAINT: CVA HPI: Patient is a 76-year-old male who presents to the ER with past medical history of occipital neuralgia, kidney stones and hypothyroidism that presents to the ER for trouble reading and memory loss. This started Tuesday going into Tuesday. He denies any headache with exception of mild pressure on the left side of his head. No change in vision. No chest pain or shortness of breath. No nausea, vomiting, or diarrhea. No new weakness or numbness in the arms or legs. No trouble ambulating. No other exacerbating or remitting factors. ROS: See above HPI for pertinent positives & negatives. A total of 10 systems reviewed and were otherwise negative. PAST MEDICAL HISTORY:See Below PAST SURGICAL HISTORY:See Below FAMILY HISTORY:See Below SOCIAL HISTORY:See Below HOME MEDICATIONS:See Below ALLERGIES:See Below VITALS:See Below PHYSICAL EXAMINATION: GENERAL: Sitting up in bed, alert, well appearing, well nourished, no distress, non-toxic EYE EXAM: normal conjunctiva. PERRL and EOM's intact. OROPHARYNX: no exudate, no erythema, lips, buccal mucosa, and tongue normal and mucous membranes are moist NECK: supple, no nuchal rigidity, no adenopathy, non-tender LUNGS: Clear to auscultation. Normal chest wall mechanics HEART: no murmurs, S1 normal and S2 normal ABDOMEN: abdomen soft, non-tender, normo-active bowel sounds, no masses, no rebound or guarding. UPPER EXTREMITIES: upper extremities are grossly normal. LOWER EXTREMITIES: No pitting edema. NEURO EXAM: Normal sensorium, cranial nerves II-XII intact, normal speech, no weakness of arms, no weakness of legs. No drift. Finger to nose intact. Gross sensation intact. MEDICAL DECISION MAKING: Patient is a 76-year-old male who presents ER for above-stated complaint. IV was established blood work was obtained. Labs show no significant leukocytosis or anemia. INR unremarkable. BMP on LFTs bilirubin and troponin was negative. TSH unremarkable. T bili slightly up at 1.4. COVID-negative. Her exam is fairly intact. CT of the head does show a new stroke which likely occurred Tuesday with his last known well. He was ordered aspirin given fluids and discussed with the hospitalist admitted for further work-up. Triage Nursing notes reviewed. Limited review of prior medical records performed Vital Signs: reviewed and remarkable for no significant abnormalities Differential diagnosis: Differential Diagnosis includes but is not limited to ischemic Stroke, hemorrhagic stroke, bells palsy, mass, neoplasm, migraine headache, seizure, subarachnoid hemorrhage, TIA, and transient global amnesia. ER treatment provided: See below Diagnostics interpreted by me: ECG: Sinus rhythm rate of 63 Poor baseline No PVCs T wave inversion in the septal leads QTC 409 Cardiac Monitoring: An order was placed for continuous cardiac monitoring. The monitor shows a rate of 70 with sinus rhythm. Laboratory studies: As stated above and show below. Imaging studies: CT of the head shows a acute to subacute CVA Consultation(s): Discussed with hospitalist for further evaluation Procedures: none Critical Care: None Past Med/Surg History Medical History Acquired deviated nasal septum Allergic rhinitis History of kidney stones Hydronephrosis, left Hypothyroidism Left ureteral stone Surgical History History of colonoscopy History of sinus surgery S/P cholecystectomy Status post cystoscopy with ureteral stent placement 02/28/20 L ureteral stent + laser lithotripsy Family History (Updated 04/14/22 @ 15:58 by Cecile Magaña PA-C) Brother Kidney stones Hypertension Heart disease Cancer Prostate cancer Father Heart disease Mother Hypertension Heart disease Other Diabetes No family history of adverse response to anesthesia No family history of bleeding disorder Denies family history of Asthma Social History Smoking Status: Never smoker Hx Alcohol Use: No Hx Substance Use: No Preferred Language: Cook Islander Communication Ability: Effective Visual Impairment: No Limitations Stockkeeper Required: No Beliefs That Will Affect Care: None marital status: Current Living Situation: Spouse current occupational status: retired Other Information That Helps Us Care for You: No Feels Safe at Home: Yes Safety Concerns: Feels Safe At This Time Assistive Devices: Glasses Allergies Allergies Allergy/AdvReac Type Severity Reaction Status Date / Time mold Allergy Unknown UNKNOWN Verified 04/14/22 15:39 mulch Allergy Unknown Unknown Uncoded 04/14/22 15:39 Home Meds Home Medications Medication Instructions Recorded Confirmed levothyroxine 112 mcg tablet 112 mcg PO QAM 02/26/20 04/14/22 Results & Data (ED) Vital Signs Vital Signs - 24 hr 04/14/22 12:18 04/14/22 14:32 04/14/22 14:32 Temperature 36.7 C Temperature Source Temporal Artery Scan Pulse Rate 72 Pulse Rate [Apical] 70 Pulse Rhythm [Apical] Pulse Strength [Apical] Respiratory Rate 18 16 Respiratory Effort / Characteristics Respiratory Depth Respiratory Pattern Blood Pressure 141/93 H Blood Pressure [Left Arm] 136/60 Blood Pressure Mean 109 Blood Pressure Mean [Left Arm] 85 Blood Pressure Position [Left Arm] Pulse Oximetry 95 95 Oxygen Delivery Method Room Air Room Air Room Air Oxygen Flow Rate 96 Sepsis Recent Fever Within 48 Hours No Sepsis New/Unexplained Change in Mental Status No Sepsis Action Taken by Nursing No Action Required 04/14/22 15:25 Temperature Temperature Source Pulse Rate Pulse Rate [Apical] 67 Pulse Rhythm [Apical] Regular Pulse Strength [Apical] Normal Respiratory Rate 20 Respiratory Effort / Characteristics Non-Labored Spontaneous Respiratory Depth Normal Respiratory Pattern Regular Blood Pressure Blood Pressure [Left Arm] 163/96 H Blood Pressure Mean Blood Pressure Mean [Left Arm] 118 Blood Pressure Position [Left Arm] Sitting Pulse Oximetry 95 Oxygen Delivery Method Room Air Oxygen Flow Rate Sepsis Recent Fever Within 48 Hours Sepsis New/Unexplained Change in Mental Status Sepsis Action Taken by Nursing Laboratory Data Result diagrams: 04/14/22 12:45 04/14/22 12:45 Lab Results 04/14/22 04/14/22 04/14/22 Range/Units 12:45 12:45 12:45 WBC 6.93 (4.8-10.8) K/ul RBC 5.63 (4.63-6.08) M/uL Hgb 16.8 (14.0-18.0) g/dl Hct 47.7 (40.1-51.0) % MCV 84.7 (80.0-100.0) fL MCH 29.8 (25.0-34.0) pg MCHC 35.2 (32.0-36.0) g/dL RDW Std Deviation 41.1 (36.4-46.3) fL RDW Coeff of Chencho 13.2 (11.5-14.5) % Plt Count 167 (130-400) K/uL MPV 10.9 (9.4-12.4) fL PT 11.0 (9.0-12.0) Seconds INR 1.0 (0.9-1.1) APTT 24.6 (21.0-31.0) Seconds PTT Ratio 0.9 Sodium 140 (136-145) mmol/L Potassium 4.0 (3.5-5.1) mmol/L Chloride 107 (98-107) mmol/L Carbon Dioxide 26 (21-32) mmol/L Anion Gap 7 (3-11) BUN 12 (6-23) mg/dl Creatinine 0.80 (0.6-1.4) mg/dl Est Cr Clr Drug Dosing 87.6 ml/min Est GFR ( Amer) 101.3 ml/min Est GFR (Non-Af Amer) 87.4 ml/min BUN/Creatinine Ratio 15.0 (10-20) Glucose 102 H (70-99(Fasting)) mg/dl Calcium 9.9 (8.5-10.1) mg/dl Magnesium 2.1 (1.7-2.4) mg/dl Total Bilirubin 1.4 H (0.2-1.0) mg/dl AST 19 (13-39) U/L ALT 22 (7-52) U/L Alkaline Phosphatase 55 (34-104) U/L Troponin I High Sens (0-20) pg/ml Total Protein 7.5 (6.0-8.3) gm/dl Albumin 4.5 (3.4-5.0) gm/dl Globulin 3.0 (2.5-4.0) gm/dl Albumin/Globulin Ratio 1.5 (0.9-2) TSH (0.300-4.500) uIu/ml SARS-CoV-2, RNA, NAAT (NEGATIVE) 04/14/22 04/14/22 04/14/22 Range/Units 12:45 12:45 15:15 WBC (4.8-10.8) K/ul RBC (4.63-6.08) M/uL Hgb (14.0-18.0) g/dl Hct (40.1-51.0) % MCV (80.0-100.0) fL MCH (25.0-34.0) pg MCHC (32.0-36.0) g/dL RDW Std Deviation (36.4-46.3) fL RDW Coeff of Chencho (11.5-14.5) % Plt Count (130-400) K/uL MPV (9.4-12.4) fL PT (9.0-12.0) Seconds INR (0.9-1.1) APTT (21.0-31.0) Seconds PTT Ratio Sodium (136-145) mmol/L Potassium (3.5-5.1) mmol/L Chloride (98-107) mmol/L Carbon Dioxide (21-32) mmol/L Anion Gap (3-11) BUN (6-23) mg/dl Creatinine (0.6-1.4) mg/dl Est Cr Clr Drug Dosing ml/min Est GFR ( Amer) ml/min Est GFR (Non-Af Amer) ml/min BUN/Creatinine Ratio (10-20) Glucose (70-99(Fasting)) mg/dl Calcium (8.5-10.1) mg/dl Magnesium (1.7-2.4) mg/dl Total Bilirubin (0.2-1.0) mg/dl AST (13-39) U/L ALT (7-52) U/L Alkaline Phosphatase (34-104) U/L Troponin I High Sens 3.9 (0-20) pg/ml Total Protein (6.0-8.3) gm/dl Albumin (3.4-5.0) gm/dl Globulin (2.5-4.0) gm/dl Albumin/Globulin Ratio (0.9-2) TSH 0.546 (0.300-4.500) uIu/ml SARS-CoV-2, RNA, NAAT NEGATIVE (NEGATIVE) Administered Medications Discontinued Medications Aspirin (Aspirin Chew 324 Mg) 324 mg PO NOW STA Stop: 04/14/22 15:07 Last Admin: 04/14/22 15:18 Dose: 324 mg Documented By: ZOE Sodium Chloride (Nss) 500 mls @ 999 mls/hr IV .Q31M ONE Stop: 04/14/22 15:35 Last Infusion: 04/14/22 16:42 Dose: 0 mls/hr Documented By: Admin: 04/14/22 15:19 Dose: 999 mls/hr Documented By: ZOE Imaging Data Radiologist's Impression: Head CT 04/14/22 12:[address] DOSE: 614.27 mGy.cm HISTORY: Stroke Alert TECHNIQUE: Multiaxial CT images of the head were performed without the use of intravenous contrast. Automated exposure control was utilized for this study. A dose lowering technique was utilized adhering to the principles of ALARA. Comparison: None. Findings: The paranasal sinuses and mastoid air cells are clear. There is a new small focal hypodensity within the left temporal/occipital lobe junction which measures 3.0 x 2.2 cm. This is best seen on image 13. This is consistent with a small acute to subacute infarct. No mass, hematoma or midline shift identified. Impression: A new small focal hypodensity within the left temporal/occipital lobe junction consistent with an acute to subacute infarct. ACT 112: Negative or not required by law. Electronically signed by: Jared Olsen M.D. 04/14/2022 1:03 PM Discharge Plan Visit Data Chief Complaint: Stroke/CVA Symptoms Stated Complaint: STROKE SYMPTOMS,CONFUSION ED Provider: Ja Mora Discharge Problem: CVA (cerebral vascular accident), Elevated bilirubin Patient Disposition: Admitted As Inpatient Discharge Instructions Interventions: ED Discharge Assessment Last Done: 04/14/22 16:55
--- NOTE | 2022-04-14 15:15 | History & Physical Report ---
Date of Service April 14, 2022 Assessment & Plan (1) CVA (cerebral vascular accident): Plan: Patient is 76-year-old male with PMH hypothyroidism, h/o kidney stones, presented to ER with complaint of difficulty reading started morning of 04/13/22. Had noted left temporal discomfort that awoke him from sleep on 04/12/22 around 0400 without MOTLEY recurrence. In ER BP: 141/93, other vitals stable. Initial troponin negative. CT Head: A new small focal hypodensity within the left temporal/occipital lobe junction consistent with an acute to subacute infarct. In ER was given 324mg aspirin Tele to monitor for arrhythmias EKG in am Trend troponin-troponin Lipids, A1C in am TSH pending MRI brain U/S carotids Echo with bubble study Fall precautions, aspiration precautions PT/OT consult Start atrovastatin Start aspririn, Plavix Monitor BP Neurology consult (2) Hypothyroidism: Plan: TSH pending Continue levothyroxine DVT Prophylaxis SCDs Full Code as per discussion with pt Follows with Dr Thomson for routine care Pt was seen and care coordinated with Dr Bentley. See addendum History of Present Illness Chief Complaint: Difficulty reading Primary Care Provider: Js Thomson MD Patient is 76-year-old male with PMH hypothyroidism, h/o kidney stones, presented to ER with complaint of difficulty reading. Patient states 04/12/[address] to [place] for 's doctor appointment and felt in his normal health. Reports around 4 AM on 04/13/2022 awoke from sleep with discomfort to left temporal region. Patient states he did not think much of this and fell back asleep. He reports waking up around 6 AM and shortly later noticed he was having difficulty reading. Patient states that morning he tried to read a map and was unable to read some of the words and comprehend the words. Patient initially presented to PCPs office with complaint of noted difficulty reading a sentence yesterday and patient was referred to ER for concern of possible stroke. Denies any recurrent headache, diplopia, blurry vision, vision loss, speech changes, facial drooping, extremity weakness, paresthesias. Denies history of stroke. Family history CAD/AK, denies any known family history of stroke. Chronic sinus pressure, has followed with ENT-Dr Garcia in past. Denies other recent illness. Denies fever/chills, diaphoresis, N/V/D/C, dizziness, syncope, neck pain, CP, SOB, orthopnea, palpitations, cough, sore throat, choking, otalgia, rhinorrhea, abdominal pain, extremity edema, extremity pain or erythema, rashes, urinary symptoms. Allergies Allergy/AdvReac Type Severity Reaction Status Date / Time mold Allergy Unknown UNKNOWN Verified 04/14/22 15:39 mulch Allergy Unknown Unknown Uncoded 04/14/22 15:39 Home Medications Medication Instructions Recorded Confirmed Type levothyroxine 112 mcg tablet 112 mcg PO QAM 02/26/20 04/14/22 History Past Med/Surg History Medical History Acquired deviated nasal septum Allergic rhinitis History of kidney stones Hydronephrosis, left Hypothyroidism Left ureteral stone Surgical History History of colonoscopy History of sinus surgery S/P cholecystectomy Status post cystoscopy with ureteral stent placement 02/28/20 L ureteral stent + laser lithotripsy Family History (Updated 04/14/22 @ 15:58 by Cecile Magaña PA-C) Brother Kidney stones Hypertension Heart disease Cancer Prostate cancer Father Heart disease Mother Hypertension Heart disease Other Diabetes No family history of adverse response to anesthesia No family history of bleeding disorder Denies family history of Asthma Social History Smoking Status: Never smoker Hx Alcohol Use: No Hx Substance Use: No Preferred Language: Bruneian Communication Ability: Effective Visual Impairment: No Limitations Loom Tuner Required: No Beliefs That Will Affect Care: None marital status: Current Living Situation: Spouse current occupational status: retired Other Information That Helps Us Care for You: No Feels Safe at Home: Yes Safety Concerns: Feels Safe At This Time Assistive Devices: Glasses Review of Systems Review of Systems: All systems reviewed & are unremarkable except as noted in HPI & below Physical Exam Physical Exam: General: no distress, WDWN Head: normocephalic, atraumatic Eyes: PERRL, EOM's intact, conjunctiva non-injected, anicteric ENT: normal inspection external ears, nose, mucous membranes moist Neck: supple, trachea midline Lungs: clear, no respiratory distress, no wheezing/rhonchi/rales CV: RRR, no murmur, no pretibial edema Abd: normal BS, soft, non-tender Ext: no cyanosis, no calf tenderness Neuro: A&O x 3, normal affect. visual richard intact. No nystagmus. facial sensation is intact and symmetric, face is strong and symmetric, hearing grossly intact, soft palate elevates symmetrically, no dysarthria, shoulder shrug intact, tongue is midline, normal movement, no fasciculations. Muscle tone normal. Strength 5/5 bilateral upper and lower extremities. +difficulty reading some words in a sentence - is mispronouncing some words. Skin: warm, dry Results & Data Results & Data ([facility]) Vital Signs (Past 12 Hours) Vital Signs Temp Pulse Pulse Resp BP BP Pulse Ox 04/14/22 14:32 70 16 136/60 95 04/14/22 14:32 04/14/22 12:18 36.7 C 72 18 141/93 H 95 O2 Del Method O2 Flow Rate 04/14/22 14:32 Room Air 04/14/22 14:32 Room Air 96 04/14/22 12:18 Room Air Laboratory Results Short CBC 04/14/22 Range/Units 12:45 WBC 6.93 (4.8-10.8) K/ul Hgb 16.8 (14.0-18.0) g/dl Hct 47.7 (40.1-51.0) % Plt Count 167 (130-400) K/uL BMP 04/14/22 12:45 Sodium 140 Potassium 4.0 Chloride 107 Carbon Dioxide 26 BUN 12 Creatinine 0.80 Glucose 102 H Calcium 9.9 Liver Function 04/14/22 Range/Units 12:45 Total Bilirubin 1.4 H (0.2-1.0) mg/dl AST 19 (13-39) U/L ALT 22 (7-52) U/L Alkaline Phosphatase 55 (34-104) U/L Albumin 4.5 (3.4-5.0) gm/dl Diagnostic Findings Head CT 04/14/22 12:[address] DOSE: 614.27 mGy.cm HISTORY: Stroke Alert TECHNIQUE: Multiaxial CT images of the head were performed without the use of intravenous contrast. Automated exposure control was utilized for this study. A dose lowering technique was utilized adhering to the principles of ALARA. Comparison: None. Findings: The paranasal sinuses and mastoid air cells are clear. There is a new small focal hypodensity within the left temporal/occipital lobe junction which measures 3.0 x 2.2 cm. This is best seen on image 13. This is consistent with a small acute to subacute infarct. No mass, hematoma or midline shift identified. Impression: A new small focal hypodensity within the left temporal/occipital lobe junction consistent with an acute to subacute infarct. ACT 112: Negative or not required by law. Electronically signed by: Jared Olsen M.D. 04/14/2022 1:03 PM Supervising Physician Co-Signing Physician Notes I have seen and examined the patient and have discussed the case with the provider above. I agree with the assessment and plan as stated. 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 Aspirin and plavix with statin given and will be continued. He is otherwise very functional. able to walk and swallow, etc. Chris is very articulate and speech is intact. Physical exam is unremarkable including an in depth neurological assessment. Cont with plans for PT/OT and neuro consults in am along with echo and telemetry monitoring. DO Mc
--- NOTE | 2022-04-14 16:56 | Electrocardiogram Report ---
Test Reason : Blood Pressure : / mmHG Vent. Rate : 063 BPM Atrial Rate : 500 BPM P-R Int : 000 ms QRS Dur : 092 ms QT Int : 400 ms P-R-T Axes : 000 -06 049 degrees QTc Int : 409 ms Poor data quality, interpretation may be adversely affected Sinus rhythm Septal infarct , age undetermined Abnormal ECG When compared with ECG of 28-FEB-2020 06:31, Septal infarct is now Present Non-specific change in ST segment in Inferior leads Confirmed by Hitesh Montana ([id number]) on 04/14/2022 4:56:23 PM Referred By: Confirmed By:Hitesh Montana
[2022-04-14] MEDS ORDERED: MAGNESIUM HYDROXIDE SUSP 30 ML UDC PO PRN (17:34)
[2022-04-14] MEDS ORDERED: POLYETHYLENE (MIRALAX) 17 GM PACK PO PRN (17:34)
[2022-04-14] MEDS ORDERED: ONDANSETRON INJ 2 MG/ML 2 ML VIAL IV PRN (17:34)
[2022-04-14] MEDS ORDERED: PHARMACIST DISCHARGE MED REC CONSULT PRN (17:34)
[2022-04-14] MEDS ORDERED: ACETAMINOPHEN 325 MG TAB PO PRN (17:34)
[2022-04-14] MEDS: CLOPIDOGREL BISULFATE 75 MG TAB PO SCH (19:42)
--- NOTE | 2022-04-14 20:59 | Ultrasound Report ---
BILATERAL CAROTID DOPPLER STUDY HISTORY: Left temporal/occipital stroke. COMPARISON: None. TECHNIQUE: Real-time, grayscale, and color Doppler sonography of the carotid arteries was performed. Imaging reviewed in the transverse and longitudinal planes. All measurements were calculated based on NASCET criteria. FINDINGS: Antegrade flow is seen in the bilateral vertebral arteries. Mild atherosclerotic plaque within the bilateral carotid bifurcations. The peak systolic velocity within the right ICA is 47 cm/s. The right systolic ratio is 0.5. The peak systolic velocity within the left ICA is 56 cm/s. The left systolic ratio is 0.7. IMPRESSION: No hemodynamically significant stenosis seen within the carotid arteries. ACT 112: Negative or not required by law. Electronically signed by: Jared Olsen M.D. 04/14/2022 8:57 PM
[2022-04-15 06:22] LABS: Hemoglobin 15.4 g/dl (14.0-18.0); Mean Corpuscular Hemoglobin 29.2 pg (25.0-34.0); Mean Corpuscular Hgb Conc 33.5 g/dL (32.0-36.0); Mean Corpuscular Volume 87.1 fL (80.0-100.0); Platelet Count 143 K/uL (130-400); RDW Coefficient of Variation 13.2 % (11.5-14.5); RDW Standard Deviation 42.1 fL (36.4-46.3); Red Blood Count 5.28 M/uL (4.63-6.08); White Blood Count 5.26 K/ul (4.8-10.8)
[2022-04-15 06:39] LABS: Estimated Average Glucose 120 mg/dl; Hemoglobin A1C 5.8 % (4.5-5.6)
[2022-04-15 06:49] LABS: BUN Creatinine Ratio 16.9 (10-20); Calcium 8.9 mg/dl (8.5-10.1); Chol HDL Ratio 6.3 (0-5); Creatinine Clr Calc Pharmacy 81.9 ml/min; Est GFR (African American) 99.8 ml/min; Est GFR (Non-African American) 86.1 ml/min; Potassium 3.8 mmol/L (3.5-5.1)
[2022-04-15] MEDS: LEVOTHYROXINE SODIUM 112 MCG TABLET PO SCH (06:51)
--- NOTE | 2022-04-15 06:51 | Magnetic Resonance Report ---
MRI OF THE BRAIN WITHOUT IV CONTRAST CLINICAL HISTORY: Stroke. COMPARISON STUDY: CT of the brain dated 04/14/2022. TECHNIQUE: MRI of the brain was performed utilizing various T1 and T2-weighted sequences in the axial , sagittal, and coronal planes. IV contrast was not administered for this examination. FINDINGS: Brain parenchyma: There is age-related involutional change noting minimal microangiopathic disease. T here is an approximately 3.5 cm focus of restricted diffusion involving the left temporo-occipital lo be consistent with acute to subacute ischemia. A small focus of restricted diffusion is seen anterior to the occipital horn of the left lateral ventricle approaching the left splenium of the corpus call osum. No additional foci of restricted diffusion are identified. There is no hemorrhage or midline sh ift. No extra-axial fluid collection is seen. The cerebellar tonsils are normal in configuration. Ventricles, sulci, and cisterns: Prominent secondary to involutional change. Pituitary and sella: Unremarkable. Intracranial vasculature: Normal flow voids are maintained at the skull base. Orbits: The bony orbits are grossly intact. Orbital contents are normal in appearance. Sinuses and mastoids: There is evidence of previous paranasal sinus surgery. There is trace mucosal t hickening within the ethmoid, sphenoid, and maxillary sinuses. The mastoid air cells are clear. Calvarium: Unremarkable. Cervical cord: Partially visualized cervical spinal cord is normal in morphology and signal intensity . IMPRESSION: 1. Foci of acute to subacute infarct involving the left temporal occipital cortex as above. 2. There is no hemorrhage or midline shift. ACT 112: Negative or not required by law. Electronically signed by: German Snyder M.D. 04/15/2022 6:49 AM
[2022-04-15] MEDS: CLOPIDOGREL BISULFATE 75 MG TAB PO SCH (07:52)
[2022-04-15] MEDS: ATORVASTATIN 40 MG TAB PO SCH (07:53)
[2022-04-15] MEDS: ASPIRIN 81 MG ECTAB PO SCH (07:53)
--- NOTE | 2022-04-15 11:08 | Neurology Consultation ---
Date of Consultation April 15, 2022 Assessment & Plan (1) CVA (cerebral vascular accident): Plan Acute to subacute left temporal occipital infarct presenting with alexia without associated vision loss, aphasia, hemiparesis, hemisensory loss, or other neurologic deficits or impairments. Patient's alexia has resolved. He appears to have an intact neurological examination at this time. No significant vascular lesion identified on carotid ultrasound. Patient is now on dual ant iplatelet therapy, daily low-dose aspirin and clopidogrel 75 mg/day. Atorvastatin has also been added. Patient should continue with dual antiplatelet therapy for the next 3 weeks, after which, may discontinue aspirin in favor of clopidogrel monotherapy. He should continue with atorvastatin going forward. I would recommend completion of a CT angiogram of the head and neck to further assess his vasculature. His echocardiogram does reveal a PFO. Paradoxical embolism could be considered. Would recommend checking a lower extremity ultrasound to rule out DVT. Occult atrial fibrillation not completely excluded. Would recommend mobile cardiac outpatient telemetry as well. If we do find evidence of atrial fibrillation, would recommend Eliquis instead of clopidogrel. No further immediate recommendations. History of Present Illness Reason for Consultation: Stroke Requesting Physician: Kamille Magaña PA-C Attending Physician: Ottoniel Shafer MD History of Present Illness The patient is a 76-year-old male with a chief complaint of difficulty reading which he noticed 3 days ago, this past Tuesday while watching a news program on television. He denied experiencing any significant difficulty understanding spoken language or with speech production. He denied experiencing any difficulty with vision loss. He reiterates that his difficulty was primarily with understanding written text. He also complained of some associated low- grade headache. No associated change in speech, vertigo, focal weakness or sensory loss. No associated difficulty with walking or balance. A CT of the head revealed a probable subacute infarct within the left temporal occipital lobe. No associated hemorrhage. This finding was confirmed on follow-up brain MRI revealing an associated area of restricted diffusion on DWI. A carotid ultrasound was unremarkable. He reports that his symptoms have subsequently resolved, no further difficulty with reading. No other neurologic symptoms reported. He denies a prior history of stroke or TIA. He takes only a thyroid medication as an outpatient as well as daily low-dose aspirin. Allergies Allergy/AdvReac Type Severity Reaction Status Date / Time mold Allergy Unknown UNKNOWN Verified 04/14/22 15:39 mulch Allergy Unknown Unknown Uncoded 04/14/22 15:39 Home Medications Medication Instructions Recorded Confirmed Type levothyroxine 112 mcg tablet 112 mcg PO QAM 02/26/20 04/14/22 History Patient History Medical History Acquired deviated nasal septum Allergic rhinitis History of kidney stones Hydronephrosis, left Hypothyroidism Left ureteral stone Surgical History History of colonoscopy History of sinus surgery S/P cholecystectomy Status post cystoscopy with ureteral stent placement 02/28/20 L ureteral stent + laser lithotripsy Family History (Updated 04/14/22 @ 15:58 by Cecile Magaña PA-C) Brother Kidney stones Hypertension Heart disease Cancer Prostate cancer Father Heart disease Mother Hypertension Heart disease Other Diabetes No family history of adverse response to anesthesia No family history of bleeding disorder Denies family history of Asthma Social History Smoking Status: Never smoker Hx Alcohol Use: No Hx Substance Use: No Preferred Language: Sinhala Communication Ability: Effective Visual Impairment: No Limitations 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 Beliefs That Will Affect Care: None marital status: Current Living Situation: Spouse current occupational status: retired Other Information That Helps Us Care for You: No Feels Safe at Home: Yes Safety Concerns: Feels Safe At This Time Assistive Devices: None Review of Systems Constitutional: no fever and no chills Eyes: no blind spots and no diplopia Ear, Nose, Mouth, Throat: no hearing loss Respiratory: no cough and no dyspnea Cardiovascular: no chest pain Gastrointestinal: no nausea and no vomiting Genitourinary: no urinary incontinence Musculoskeletal: no myalgia Integumentary: no rash and no lesions Neurologic: as per Subjective / HPI Psychiatric: no depression and no anxiety Hematologic / Lymphatic: no easy bleeding and no easy bruising Exam (Neuro) Constitutional: well developed and well nourished; no acute distress Eyes: normal visual richard by confrontation, PERRL, normal accommodation and EOM intact bilaterally; no fundoscopic abnormality, no nystagmus and no hood lledema Cardiovascular: Vessels: normal carotid upstroke; no carotid bruit Neurologic: Oriented to:: Person, Place and Time Memory: Short Term Intact and Remote Intact Attention: Span Intact and Concentration Intact Languag e: Naming Objects and Repeating Phrases Speech Fluency: negative Dysarthria Speech Aphasia: negative Aphasia Fund of Knowledge: Current Events, Past History and Vocabulary Cranial Nerves: Normal II (Visual richard full to confrontation, visual acuity normal), III, IV, (Pupils equal round reactive to light and accommodation, eye movements normal), V (Facial sensation intact), VII (There is no facial droop or weakness), VIII (Hearing intact), IX, X (Palate elevates to midline), XI (Shoulder shrug intact) and XII (Tongue protrudes to midline) Motor Strength: Normal Lower Extremities and Normal Upper Extremities; negative Pronator Drift Motor Tone: Normal Lower Extremities and Normal Upper Extremities Muscle Bulk/Involuntary Movements: No Involuntary Movements; negative Muscle Atrophy Sensation: Light Touch Intact, Pain/Temperature Intact, Vibration Intact and Proprioception Intact Coordination: Normal; negative Limited Balance, Dysdiadochokinesia, Finger-Nose Abnormal or Heel-Ibanez Abnormal Deep Tendon Reflexes: Rt Triceps: 2+, Lt Triceps: 2+, Rt Biceps: 2+, Lt Biceps: 2+, Rt Brachioradialis: 2+, Lt Bra chioradialis: 2+, Rt Patellar: 2+, Lt Patellar: 2+, Rt Ankle: 2+ and Lt Ankle: 2+ Special Tests: negative Babinski Present Gait: Normal Station and Gait Details: No left right confusion, no finger anomia, no acalculia Results & Data ([facility]) Vital Signs (Past 12 Hours) Vital Signs Temp Pulse Pulse Resp BP Pulse Ox O2 Del Method 04/15/22 07:52 36.7 C 63 19 123/77 94 Room Air 04/15/22 07:17 66 04/15/22 04:00 36.9 C 71 18 121/85 94 Room Air 04/14/22 22:59 36.6 C 60 18 125/77 93 Room Air Laboratory Results WBC 5.26, hemoglobin 15.4, hematocrit 46.0, platelet count 143, sodium 139, potassium 3.8, BUN 14, creatinine 0.83, glucose 102, hemoglobin A1c 5.8, AST 19, ALT 22, triglycerides 113, cholesterol 184, LDL 132, VLDL 23, HDL 29, TSH 0.546, SARS-CoV-[address] of the head and carotid ultrasound are as described above. I independently reviewed the brain MRI and CT of the head. There is an area of restricted diffusion within the left temporal occipital region consistent with an acute to subacute infarct. There is corresponding dark signal on ADC map. There is no pathologic blooming artifact. There is mild chronic microvascular ischemic change on T2 and FLAIR weighted sequences as well as generalized mild to moderate atrophy. An echocardiogram completed yesterday revealed borderline concentric left ventricular hypertrophy, EF 60 to 65%, right ventricular systolic function normal, left atrial size normal, no interatrial shunt. There was evidence of a PFO. An electrocardiogram reveals sinus rhythm with fusion complexes, 68 bpm. Coding Level of Care Code 41815 Initial Inpt Care Lvl 3 Diagnoses CVA (cerebral vascular accident) I63.9
--- NOTE | 2022-04-15 11:56 | Ultrasound Report ---
US venous doppler LE BI CLINICAL HISTORY: Rule out DVT TECHNIQUE: Bilateral lower extremity real-time compression venous ultrasound with Color Doppler imagi ng. Utilizing real-time ultrasonic imaging multiple real time high-resolution ultrasonic images with compression and noncompression maneuvers of the deep venous system in addition to color doppler imagi ng were performed from the common femoral vein through the proximal calf veins. COMPARISON: None available at the time of this dictation. FINDINGS: Currently there is normal compressibility of the deep venous system from the common femoral vein thro ugh the proximal calf veins. No superficial venous thrombosis is identified. Impression: No evidence of deep venous thrombus. ACT 112: Negative or not required by law. Electronically signed by: Jaron Blue M.D. 04/15/2022 11:55 AM
--- NOTE | 2022-04-15 11:58 | Electrocardiogram Report ---
Test Reason : Blood Pressure : / mmHG Vent. Rate : 068 BPM Atrial Rate : 068 BPM P-R Int : 182 ms QRS Dur : 090 ms QT Int : 420 ms P-R-T Axes : 066 014 070 degrees QTc Int : 446 ms Sinus rhythm with with occasional Premature ventricular complexes Otherwise normal ECG When compared with ECG of 14-APR-2022 12:48, Premature ventricular complexes now present Criteria for Septal infarct are no longer Present Confirmed by Gregory Hawkins ([id number]) on 04/15/2022 11:57:56 AM Referred By: REFERRED SELF Confirmed By:Gregory Hawkins
--- NOTE | 2022-04-15 12:23 | Hospitalist Progress Note ---
Date of Service April 15, 2022 Assessment & Plan (1) CVA (cerebral vascular accident): Plan: Patient is 76-year-old male with PMH hypothyroidism, h/o kidney stones, presented to ER with complaint of difficulty reading started morning of 04/13/22. Had noted left temporal discomfort that awoke him from sleep on 04/12/22 around 0400 without MOTLEY recurrence. Acute left temporal occipital ischemic stroke Patent foramen ovale Patient presented with difficulty reading (alexia). CT head showed new small foci of hypodensity within left temporal/occipital lobe junction consistent with acute to subacute infarct MRI brain showed foci of acute to subacute infarct involving left temporal occipital cortex. Echo shows EF of 60 to 65%; bubble test showed patent foramen ovale. Telemetry sinus rhythm; occasional PVCs. Bilateral venous duplex no DVT Plan; Currently on aspirin and Plavix; to be on dual antiplatelet for next 3-week and discontinue aspirin. Continue on Lipitor. Will obtain CT angio head and neck for further evaluation as per Neurology recommendations. Continue to monitor on telemetry. (2) Hypothyroidism: Plan: TSH 0.546 Continue levothyroxine DVT Prophylaxis SCDs Full Code as per discussion with pt Follows with Dr Thomson for routine care Admission and Anticipated Discharge Date Admission Date: April 14, 2022 Subjective Patient seen and examined at bedside. Patient reports that his alexia has improved compared to admission. Telemetry shows sinus rhythm; occasional PVCs. Review of Systems Review of Systems: All systems reviewed & are unremarkable except as noted in Subjective Physical Exam Physical Exam: Constitutional: WD/WN, vitals as above, NAD, sitting up in bed, pleasant, conversing easily Respiratory: normal respiratory effort, lungs clear to auscultation, no wheeze, rales, rhonchi. Normal insp/exp effort, no accessory muscle use Cardiovascular: RRR, no murmur, no edema Vessels: no JVD or carotid bruit Chest: normal inspection of chest Abdomen: normal bowel sounds, soft, nontender, no hepatosplenomegaly Musculoskeletal: no cyanosis or clubbing, extremities motor strength 5/5 Skin: no rashes, warm and dry normal turgor Neurologic: PERRL, EOMI, accommodation nl, no face palsy, no dysarthria CN's II- XI intact bilaterally and moves all extremities Psychiatric: A+Ox3, euthymic affect Lymphatic: no cervical or axillary lymphadenopathy : deferred Results & Data Results & Data ([facility]) Vital Signs (Past 12 Hours) Vital Signs Temp Pulse Pulse Resp BP Pulse Ox O2 Del Method 04/15/22 11:27 36.8 C 64 18 127/75 93 Room Air 04/15/22 07:52 36.7 C 63 19 123/77 94 Room Air 04/15/22 07:17 66 04/15/22 04:00 36.9 C 71 18 121/85 94 Room Air Laboratory Results Laboratory Results WBC 5.26 K/ul (4.8-10.8) 04/15/22 06:01 RBC 5.28 M/uL (4.63-6.08) 04/15/22 06:01 Hgb 15.4 g/dl (14.0-18.0) 04/15/22 06:01 Hct 46.0 % (40.1-51.0) 04/15/22 06:01 MCV 87.1 fL (80.0-100.0) 04/15/22 06:01 MCH 29.2 pg (25.0-34.0) 04/15/22 06:01 MCHC 33.5 g/dL (32.0-36.0) 04/15/22 06:01 RDW Std Deviation 42.1 fL (36.4-46.3) 04/15/22 06:01 RDW Coeff of Chencho 13.2 % (11.5-14.5) 04/15/22 06:01 Plt Count 143 K/uL (130-400) 04/15/22 06:01 MPV 11.0 fL (9.4-12.4) 04/15/22 06:01 PT 11.0 Seconds (9.0-12.0) 04/14/22 12:45 INR 1.0 (0.9-1.1) 04/14/22 12:45 APTT 24.6 Seconds (21.0-31.0) 04/14/22 12:45 PTT Ratio 0.9 04/14/22 12:45 Sodium 139 mmol/L (136-145) 04/15/22 06:01 Potassium 3.8 mmol/L (3.5-5.1) 04/15/22 06:01 Chloride 108 mmol/L (98-107) H 04/15/22 06:01 Carbon Dioxide 23 mmol/L (21-32) 04/15/22 06:01 Anion Gap 8 (3-11) 04/15/22 06:01 BUN 14 mg/dl (6-23) 04/15/22 06:01 Creatinine 0.83 mg/dl (0.6-1.4) 04/15/22 06:01 Est Cr Clr Drug Dosing 81.9 ml/min 04/15/22 06:01 Est GFR ( Amer) 99.8 ml/min 04/15/22 06:01 Est GFR (Non-Af Amer) 86.1 ml/min 04/15/22 06:01 BUN/Creatinine Ratio 16.9 (10-20) 04/15/22 06:01 Glucose 102 mg/dl (70-99(Fasting)) H 04/15/22 06:01 Estimat Average Glucose 120 mg/dl 04/15/22 06:01 Hemoglobin A1c 5.8 % (4.5-5.6) H 04/15/22 06:01 Calcium 8.9 mg/dl (8.5-10.1) 04/15/22 06:01 Magnesium 2.1 mg/dl (1.7-2.4) 04/14/22 12:45 Total Bilirubin 1.4 mg/dl (0.2-1.0) H 04/14/22 12:45 AST 19 U/L (13-39) 04/14/22 12:45 ALT 22 U/L (7-52) 04/14/22 12:45 Alkaline Phosphatase 55 U/L (34-104) 04/14/22 12:45 Troponin I High Sens 4.7 pg/ml (0-20) 04/15/22 06:01 Total Protein 7.5 gm/dl (6.0-8.3) 04/14/22 12:45 Albumin 4.5 gm/dl (3.4-5.0) 04/14/22 12:45 Globulin 3.0 gm/dl (2.5-4.0) 04/14/22 12:45 Albumin/Globulin Ratio 1.5 (0.9-2) 04/14/22 12:45 Triglycerides 113 mg/dl (0-150) 04/15/22 06:01 Cholesterol 184 mg/dl (0-200) 04/15/22 06:01 LDL Cholesterol, Calc 132 mg/dl 04/15/22 06:01 VLDL Cholesterol, Calc 23 mg/dl (0-30) 04/15/22 06:01 HDL Cholesterol 29 mg/dl 04/15/22 06:01 Cholesterol/HDL Ratio 6.3 (0-5) H 04/15/22 06:01 TSH 0.546 uIu/ml (0.300-4.500) 04/14/22 12:45 SARS-CoV-2, RNA, NAAT NEGATIVE (NEGATIVE) 04/14/22 15:[address] 04/14/22 12:[address] DOSE: 614.27 mGy.cm HISTORY: Stroke Alert TECHNIQUE: Multiaxial CT images of the head were performed without the use of intravenous contrast. Automated exposure control was utilized for this study. A dose lowering technique was utilized adhering to the principles of ALARA. Comparison: None. Findings: The paranasal sinuses and mastoid air cells are clear. There is a new small focal hypodensity within the left temporal/occipital lobe junction which measures 3.0 x 2.2 cm. This is best seen on image 13. This is consistent with a small acute to subacute infarct. No mass, hematoma or midline shift identified. Impression: A new small focal hypodensity within the left temporal/occipital lobe junction consistent with an acute to subacute infarct. ACT 112: Negative or not required by law. Electronically signed by: Jared Olsen M.D. 04/14/2022 1:03 PM Brain MRI 04/14/22 17:34 MRI OF THE BRAIN WITHOUT IV CONTRAST CLINICAL HISTORY: Stroke. COMPARISON STUDY: CT of the brain dated 04/14/2022. TECHNIQUE: MRI of the brain was performed utilizing various T1 and T2-weighted sequences in the axial, sagittal, and coronal planes. IV contrast was not administered for this examination. FINDINGS: Brain parenchyma: There is age-related involutional change noting minimal microangiopathic disease. There is an approximately 3.5 cm focus of restricted diffusion involving the left temporo-occipital lobe consistent with acute to subacute ischemia. A small focus of restricted diffusion is seen anterior to the occipital horn of the left lateral ventricle approaching the left splenium of the corpus callosum. No additional foci of restricted diffusion are identified. There is no hemorrhage or midline shift. No extra-axial fluid collection is seen. The cerebellar tonsils are normal in configuration. Ventricles, sulci, and cisterns: Prominent secondary to involutional change. Pituitary and sella: Unremarkable. Intracranial vasculature: Normal flow voids are maintained at the skull base. Orbits: The bony orbits are grossly intact. Orbital contents are normal in appearance. Sinuses and mastoids: There is evidence of previous paranasal sinus surgery. There is trace mucosal thickening within the ethmoid, sphenoid, and maxillary sinuses. The mastoid air cells are clear. Calvarium: Unremarkable. Cervical cord: Partially visualized cervical spinal cord is normal in morphology and signal intensity. IMPRESSION: 1. Foci of acute to subacute infarct involving the left temporal occipital cortex as above. 2. There is no hemorrhage or midline shift. ACT 112: Negative or not required by law. Electronically signed by: German Snyder M.D. 04/15/2022 6:49 AM Carotid Doppler Study 04/14/22 17:34 BILATERAL CAROTID DOPPLER STUDY HISTORY: Left temporal/occipital stroke. COMPARISON: None. TECHNIQUE: Real-time, grayscale, and color Doppler sonography of the carotid arteries was performed. Imaging reviewed in the transverse and longitudinal planes. All measurements were calculated based on NASCET criteria. FINDINGS: Antegrade flow is seen in the bilateral vertebral arteries. Mild atherosclerotic plaque within the bilateral carotid bifurcations. The peak systolic velocity within the right ICA is 47 cm/s. The right systolic ratio is 0.5. The peak systolic velocity within the left ICA is 56 cm/s. The left systolic ratio is 0.7. IMPRESSION: No hemodynamically significant stenosis seen within the carotid arteries. ACT 112: Negative or not required by law. Electronically signed by: Jared Olsen M.D. 04/14/2022 8:57 PM Venous Doppler Study 04/15/22 10:34 US venous doppler LE BI CLINICAL HISTORY: Rule out DVT TECHNIQUE: Bilateral lower extremity real-time compression venous ultrasound with Color Doppler imaging. Utilizing real-time ultrasonic imaging multiple real time high-resolution ultrasonic images with compression and noncompression maneuvers of the deep venous system in addition to color doppler imaging were performed from the common femoral vein through the proximal calf veins. COMPARISON: None available at the time of this dictation. FINDINGS: Currently there is normal compressibility of the deep venous system from the common femoral vein through the proximal calf veins. No superficial venous thrombosis is identified. Impression: No evidence of deep venous thrombus. ACT 112: Negative or not required by law. Electronically signed by: Jaron Blue M.D. 04/15/2022 11:55 AM
[2022-04-15] MEDS ORDERED: OPTIRAY 320 500ml IV ONE (13:39)
--- NOTE | 2022-04-15 14:21 | CT Scan Report ---
CTA ANGIOGRAPHY OF THE HEAD CLINICAL HISTORY: Stroke work up. COMPARISON STUDY: Head CT and MRI of the brain April 14, 2022. TECHNIQUE: Helical axial images of the head were obtained following uneventful intravenous administr ation of 120 cc of Optiray. Sagittal and coronal reconstructions were viewed as well as maximal inten sity projections on an independent 3-D workstation. Automated exposure control was utilized for the study. A dose lowering technique was utilized adhering to the principles of ALARA. CT DOSE: 662.82 mGy.cm FINDINGS: Please note that the CTA of the neck will be reported separately. No acute intracranial hem orrhage is identified on this contrast enhanced exam. Note is again made of the acute to subacute pos terior left temporal lobe infarct as shown on prior head CT and MRI. The bilateral M1, M2, A1 and A2 segments are patent. There is no central occlusion within the anterior circulation. The right vertebr al artery is dominant. Distal left vertebral artery is diminutive. Basilar artery is patent. Bilatera l posterior cerebral arteries are patent. No intracranial aneurysm or dissection is identified. There is mild plaque within the bilateral common carotids without stenosis. There is persistence of the right posterior cerebral artery. Major dural sinuses are patent. IMPRESSION: 1. No central vessel occlusion or intracranial aneurysm. 2. Acute to subacute posterior left temporal lobe infarct, as shown on prior head CT and MRI. ACT 112: Negative or not required by law. Electronically signed by: Richard John M.D. 04/15/2022 2:18 PM
--- NOTE | 2022-04-15 15:15 | Pharmacy Report ---
- Date of Service April 15, 2022 - Pharmacy CVA/TIA Medication Review Medications to Prevent Stroke handout has been added to the patients discharge packet. Antiplatelet(s) * Aspirin 81mg + Plavix 75mg x 3 weeks, then just Plavix Cholesterol * High intensity statin: atorvastatin 40 mg daily DVT Prophylaxis * SCD knee Therapeutic Anticoagulation * No history of Afib/Aflutter noted Type 2 Diabetes * Patient does not have T2DM
--- NOTE | 2022-04-15 16:19 | CT Scan Report ---
CT angio neck with con CLINICAL HISTORY: Stroke work up TECHNIQUE: CT angiography of the neck was performed following intravenous administration of iodinate d contrast. Coronal and sagittal MIPS were obtained from the axial data set and were submitted for re view. Automated dose lowering techniques and/or adjustment according to patient size were utilized f or this examination. All measurements were calculated based on NASCET criteria. Comparison: Comparison is made to carotid ultrasound 04/14/2022 FINDINGS: Lungs and soft tissues are unremarkable. CTA Neck: Direct origin of the left vertebral artery from the aortic arch is seen. There is no signi ficant atherosclerotic plaque in the aortic arch or the origins of the innominate, left common caroti d, and left subclavian arteries. The common carotid, external carotid, cervical segments of the int ernal carotid arteries, and the cervical segments of the vertebral arteries are patent without hemody namically significant stenosis. The right vertebral artery is dominant. IMPRESSION: No occlusion, hemodynamically significant stenosis, or dissection in the major cervical arteries. Assessment of stenosis of the internal carotid arteries is based on NASCET criteria. ACT 112: Negative or not required by law. Electronically signed by: Jaron Blue M.D. 04/15/2022 4:18 PM
[2022-04-16] MEDS: LEVOTHYROXINE SODIUM 112 MCG TABLET PO SCH (05:46)
[2022-04-16 06:28] LABS: Basophils # (auto) 0.03 K/uL (0-0.2); Basophils % (auto) 0.5 %; Eosinophils # (auto) 0.38 K/uL (0-0.50); Eosinophils % (auto) 6.2 %; Hematocrit (blood only) 47.2 % (40.1-51.0); Hemoglobin 16.1 g/dl (14.0-18.0); Immature Granulocytes # (auto) 0.02 K/uL (0.00-0.02); Immature Granulocytes % (auto) 0.3 %; Lymphocytes % (auto) 27.7 %; Mean Corpuscular Hemoglobin 29.2 pg (25.0-34.0); Mean Corpuscular Hgb Conc 34.1 g/dL (32.0-36.0); Mean Corpuscular Volume 85.7 fL (80.0-100.0); Mean Platelet Volume 10.9 fL (9.4-12.4); Monocytes # (auto) 0.61 K/uL (0.24-0.82); Neutrophils # (auto) 3.39 K/uL (1.4-6.5); Neutrophils % (auto) 55.3 %; Platelet Count 154 K/uL (130-400); RDW Coefficient of Variation 13.1 % (11.5-14.5); RDW Standard Deviation 41.3 fL (36.4-46.3); Red Blood Count 5.51 M/uL (4.63-6.08); White Blood Count 6.13 K/ul (4.8-10.8)
[2022-04-16 06:47] LABS: BUN Creatinine Ratio 17.4 (10-20); Calcium 9.4 mg/dl (8.5-10.1); Creatinine Clr Calc Pharmacy 73.9 ml/min; Est GFR (Non-African American) 81.1 ml/min; Potassium 3.9 mmol/L (3.5-5.1)
[2022-04-16] MEDS: CLOPIDOGREL BISULFATE 75 MG TAB PO SCH (07:31)
[2022-04-16] MEDS: ATORVASTATIN 40 MG TAB PO SCH (07:31)
[2022-04-16] MEDS: ASPIRIN 81 MG ECTAB PO SCH (07:31)
--- NOTE | 2022-04-16 15:02 | Discharge Summary ---
Date of Service April 16, 2022 Admission HPI Per Admitting Provider Patient is 76-year-old male with PMH hypothyroidism, h/o kidney stones, presented to ER with complaint of difficulty reading. Patient states 04/12/[address] to [place] for 's doctor appointment and felt in his normal health. Reports around 4 AM on 04/13/2022 awoke from sleep with discomfort to left temporal region. Patient states he did not think much of this and fell back asleep. He reports waking up around 6 AM and shortly later noticed he was having difficulty reading. Patient states that morning he tried to read a map and was unable to read some of the words and comprehend the words. Patient i nitially presented to PCPs office with complaint of noted difficulty reading a sentence yesterday and patient was referred to ER for concern of possible stroke. Denies any recurrent headache, diplopia, blurry vision, vision loss, speech changes, facial drooping, extremity weakness, paresthesias. Denies history of stroke. Family history CAD/[place], denies any known family history of stroke. Chronic sinus pressure, has followed with ENT-Dr Garcia in past. Denies other recent illness. Denies fever/chills, diaphoresis, N/V/D/C, dizziness, syncope, neck pain, CP, SOB, orthopnea, palpitations, cough, sore throat, choking, otalgia, rhinorrhea, abdominal pain, extremity edema, extremity pain or erythema, rashes, urinary symptoms. Admission Exam Per Admitting Provider General: no distress, WDWN Head: normocephalic, atraumatic Eyes: PERRL, EOM's intact, conjunctiva non-injected, anicteric ENT: normal inspection external ears, nose, mucous membranes moist Neck: supple, trachea midline Lungs: clear, no respiratory distress, no wheezing/rhonchi/rales CV: RRR, no murmur, no pretibial edema Abd: normal BS, soft, non-tender Ext: no cyanosis, no calf tenderness Neuro: A&O x 3, normal affect. visual richard intact. No nystagmus. facial sensation is intact and symmetric, face is strong and symmetric, hearing grossly intact, soft palate elevates symmetrically, no dysarthria, shoulder shrug intact, tongue is midline, normal movement, no fasciculations. Muscle tone normal. Strength 5/5 bilateral upper and lower extremities. +difficulty reading some words in a sentence - is mispronouncing some words. Skin: warm, dry Principal Diagnosis Acute left temporal occipital ischemic stroke Patent foramen ovale Discharge Exam Constitutional: WD/WN, vitals as above, NAD, sitting up in bed, pleasant, conversing easily Respiratory: normal respiratory effort, lungs clear to auscultation, no wheeze, rales, rhonchi. Normal insp/exp effort, no accessory muscle use Cardiovascular: RRR, no murmur, no edema Vessels: no JVD or carotid bruit Chest: normal inspection of chest Abdomen: normal bowel sounds, soft, nontender, no hepatosplenomegaly Musculoskeletal: no cyanosis or clubbing, extremities motor strength 5/5 Skin: no rashes, warm and dry normal turgor Neurologic: PERRL, EOMI, accommodation nl, no face palsy, no dysarthria CN's II- XI intact bilaterally and moves all extremities Psychiatric: A+Ox3, euthymic affect Lymphatic: no cervical or axillary lymphadenopathy : deferred Discharge Data Allergies Allergy/AdvReac Type Severity Reaction Status Date / Time mold Allergy Unknown UNKNOWN Verified 04/14/22 15:39 mulch Allergy Unknown Unknown Uncoded 04/14/22 15:39 Consultations 04/14/22 15:03 ED Decision to Admit Stat 04/14/22 17:34 Consult Neurology Routine Ordered Studies 04/14/22 12:26 CT head/brain wo con Stat 04/14/22 17:34 MR brain wo con Routine US carotid doppler BI Routine 04/15/22 10:34 US venous duplex leg [US venous doppler LE BI] Routine 04/15/22 11:13 CT angio head w con Routine CT angio neck with con Routine Hospital Course (1) CVA (cerebral vascular accident): Patient is 76-year-old male with PMH hypothyroidism, h/o kidney stones, presented to ER with complaint of difficulty reading started morning of 04/13/22. CT head showed new small foci of hypodensity within left temporal/occipital lobe junction consistent with acute to subacute infarct. MRI brain showed foci of acute to subacute infarct involving left temporal occipital cortex. Echo was done which showed EF of 60 to 65%; patient was found to have p atent martinez ovale. CT angio head and neck did not show any large vessel occlusion. Lower extremity duplex was done which was negative for any DVT. Neurology was consulted; recommended dual antiplatelet for next 3 weeks; discontinue aspirin after that. He was also started on Lipitor. Telemetry monitoring during the hospitalization showed sinus rhythm with no arrhythmia. Patient was discharged home with instruction to follow-up with primary care and cardiology. Patient was instructed to have outpatient classroom monitor to monitor for A. fib. Total Time Total Time Spent Total Time Spent (In Minutes): 35 Total Time Includes: Examination of the Patient, Discharge Planning, Medication Reconciliation, Communication With Other Providers and Other Discharge Plan Discharge Items Patient Disposition: Home - Self-Care Reason For Visit: STROKE Discharge Diagnosis: Acute left temporal occipital ischemic stroke Patent foramen ovale Activity: Resume your previous activity Non-emergency contact: Primary Care Provider Call non-emergency contact if: you have any medication questions and your symptoms worsen Follow-up/Referrals: Js Thomson MD [Primary Care Provider] - (Date & Time 04/20/2022 2:00 PM Provider Joellen Bell Department Family [facility] *Your PCP will discuss the cardiology findings/recommendations and possibly make a referral to Cardiology at your follow up appointment.* ) Diet: Regular Addtl Attending Provider Instructions: You are found to have stroke in left temporal occipital cortex of your brain which is the language center. You might continue to have trouble reading for a short period of time before it eventually gets better. Please refrain from driving if you are not able to read signs on the road. For prevention of future strokes, you are started on following medications: 1) Aspirin 81 mg for 20 more days 2) Plavix 75 mg once daily indefinitely 3) Lipitor 40 mg once daily. Echocardiogram of your heart showed patent martinez ovale. You will need to follow-up with cardiology as outpatient. You will also need classroom monitor to be placed as outpatient to see if you have periods of irregular heart rhythm. You will also need to follow-up with her primary care doctor. Pending Studies at Discharge: No Stand-Alone Forms: [employer], Smoking Cessation, Medications to Prevent Stroke Medications and DC Order Prescriptions: New clopidogrel 75 mg Tablet 75 mg PO QAM Qty: 30 0RF atorvastatin 40 mg Tablet 40 mg PO QAM Qty: 30 0RF aspirin 81 mg Tablet,Delayed Release (Dr/Ec) 81 mg PO QAM Qty: 20 0RF Continued levothyroxine 112 mcg tablet 112 mcg PO QAM Discharge Orders: Discharge Order (Routine); Ordered 04/16/22 Ordered By: Ottoniel Shafer Admission Data Admit Date/Time: 04/14/22 15:29 Attending Provider: Ottoniel Shafer Admit Provider: Rebekah Bentley Primary Care Provider: Js Thomson Other Providers: Rebekah Bentley ; John Tomlinson Other Interventions: Discharge Summary Assessment (RN) Last Done: 04/16/22 11:33
== END 2022-04-16 13:59 | disposition home or self-care (01) | DRG 65 ==
LOC: ED 12:02 → SUATTDRO 15:29 → 2W 15:29